=== PATIENT | female | born 1995 | race Caucasian/White ===

== ENCOUNTER 2016-09-06 21:11 | Emergency (ER) | payer BC, OTHER ==
[~2016-09-06] VITALS: Ht 167.6 cm; Wt 70.4 kg
[~2016-09-06 21:11] MED LIST: ACET-1256 PO; BCPILLS PO; LAMO200T38 PO; LXT PO; METF-384 PO; MTR600XX PO; MUSCLE RELAXER PO; NAPR1TAB9 PO
[2016-09-06 21:13] VITALS: Ht 167.6 cm; Wt 70.4 kg
[2016-09-06] MEDS ORDERED: SERT-234 PO (21:54)
[2016-09-06] MEDS ORDERED: LEVO50TA6 PO (21:54)
[2016-09-06] MEDS ORDERED: DOCU-94 PO (21:54)
[2016-09-06] MEDS ORDERED: GABA-112 PO (21:54)
[2016-09-06 22:42] VITALS: BP 115/66; PULSE 101; TEMP 36.7; O2SAT 95
[2016-09-06] MEDS ORDERED: NEOMYCIN/POLYMYX/HYDROCORT OT SUSP 10 ML BTL OT ONE (22:45)
--- NOTE | 2016-09-07 03:36 | EMERGENCY ROOM VISIT NOTE ---
ED Visit Note First contact with patient: 21:16 Chief Complaint: Sore throat and right ear pain. History of Present Illness: Ms. Mcdonnell is a 20-year-old white female who ambulates into the ED accompanied by her mother complaining of throat pain and right ear pain. Patient reports her throat pain started approximately one week ago. Since that time her pain has been constant. She describes her pain as an achy sensation. She rates her discomfort 6/10. The pain is nonradiating. Pain worsens with swallowing. She has not identified any alleviating factors related to the pain. Associated with her pain she reports she has been having fevers, chills and left ear pain. Currently patient describes her left ear pain as a sharp and throbbing sensation. She rates this discomfort 7/10. The pain is nonradiating. The pain worsens with palpation. She has not identified any alleviating factors related to the pain. She has not taken any medications for pain prior to arrival at the hospital. Associated with her pain she reports her hearing is slightly muffled. She did report when her symptoms initially started with her sore throat she was having fevers but has not had any in the last few days. Additionally she denies headache, dizziness, lightheadedness, painful talking, drooling, inability to swallow, neck pain/stiffness, ear drainage, abdominal pain, nausea, vomiting, cough, wheezing, shortness of breath. Review of Systems: As noted above in history of present illness. 8 body systems were reviewed and found to be negative as noted above. Past Medical History: Hypertension, asthma, bronchitis, PCOS, hypothyroidism, hyperinsulinemia. Current Medications: control, Glucophage, Aleve, Colace, Zoloft, Neurontin. Allergies to Medications: Patient denies. Social History: Patient is not employed; she lives by herself and feels safe in her home environment; she admits to tobacco use and denies alcohol use. Physical Examination: Vital Signs: Date Time Temp Pulse Resp B/P Pulse Ox O2 Delivery O2 Flow Rate FiO2 09/06/16 22:42 36.7 101 16 115/66 95 09/06/16 22:40 101 16 115/66 95 Room Air 09/06/16 21:13 36.7 107 16 113/64 95 Room Air GENERAL: -year-old female in mild to moderate distress due to pain, nontoxic- appearing, afebrile and hemodynamically stable. NEUROLOGICAL: Awake, alert and oriented to person, place and time. Answering questions appropriately and following commands. Normal gait. Good hand eye coordination. No focal motor sensory deficits. SKIN: Warm, dry and pink. No soft tissue eruptions or trauma noted. HEENT: Atraumatic and normocephalic. Mild left external ear tenderness over the tragus. Left auditory canal is mildly erythematous and edematous. Tympanic membrane was pearly singh with normal light reflex. PERRLA. Sclera white and conjunctiva pink without drainage. No drainage from naris. Oral cavity moist and pink. Uvula is midline and no abscesses are seen. Posterior pharyngeal area shows mild erythematous. No tonsillar hypertrophy or exudates. No laryngeal tenderness. Speech normal and clear. Mild bilateral anterior cervical chain lymphadenopathy. Trachea midline. No jugular venous distention. BACK: No tenderness over the bony spine. No nuchal rigidity or meningismus. No CVA tenderness. THORAX: Lungs sounds are clear to auscultation and equal bilaterally with symmetrical chest wall. No wheezing, rales or rhonchi. ED Course: Patient is assessed as noted above. Rapid Strep Screen: Negative. Culture pending. 4 drops of Cortisporin otic suspension was placed in the right ear canal. Patient and mother were educated about today's findings and instructed on her treatment plan; she verbalizes understanding and agreement with this plan. Clinical Impression: Acute otitis externa. Acute pharyngitis. Disposition: Patient discharged home in stable condition accompanied by her mother; prior to departure she was reassessed and subjectively reported she was feeling the same. Plan: Patient was encouraged to use 4 drops of Cortisporin otic suspension in the right ear canal 4 times a day for 5-7 days. Patient was encouraged not to put or allow anything in the ear canal until resolution of symptoms/pain. Patient for her throat and ear pain was instructed to use ibuprofen or acetaminophen or alternate every 3 hours. Patient was encouraged to follow-up with family physician for recheck early next week. Patient was encouraged to return to the ED for worsening ear pain, inability to swallow, painful talking, drooling, uncontrolled fevers, ear drainage or any new /concerning symptoms.
== END 2016-09-06 22:43 | disposition home or self-care (01) ==
LOC: C.EDB 21:12 → C.EDD 22:43
DX: H60.503 Unspecified acute noninfective otitis externa, bilateral (principal); J02.9 Acute pharyngitis, unspecified; I10 Essential (primary) hypertension; J45.909 Unspecified asthma, uncomplicated; E28.2 Polycystic ovarian syndrome; E03.9 Hypothyroidism, unspecified; E16.1 Other hypoglycemia; Z79.3 Long term (current) use of hormonal contraceptives; Z79.899 Other long term (current) drug therapy; Z72.0 Tobacco use

== ENCOUNTER 2017-05-07 23:14 | Emergency (ER) | payer BC ==
[~2017-05-07] VITALS: Ht 167.6 cm; Wt 83.0 kg
[~2017-05-07 23:14] MED LIST changes: -ACET-1256 PO; +DOCU-94 PO; +GABA-112 PO; -LAMO200T38 PO; +LEVO50TA6 PO; -LXT PO; -MTR600XX PO; -MUSCLE RELAXER PO; +SERT-234 PO
[2017-05-07 23:21] VITALS: TEMP 36.4; Ht 167.6 cm; Wt 83.0 kg
[2017-05-07] MEDS ORDERED: METF-384 PO (23:40)
[2017-05-07] MEDS ORDERED: LEVO50TA PO (23:40)
[2017-05-07] MEDS ORDERED: SERTRALINE HCL 50 MG TAB PO ONE (23:45)
[2017-05-08 00:01] LABS: BASO % 0.4 %; BASO ABS # 0.03 K/uL (0-0.2); EOS % 2.8 %; EOS ABS # 0.21 K/uL (0-0.5); HEMOGLOBIN 12.4 g/dL (12.0-16.0); IG# 0.02 K/uL (0.00-0.02); LYMPH % 30.5 %; LYMPH ABS # 2.33 K/uL (1.2-3.4); MEAN CORPUSCULAR HEMOGLOBIN 28.8 pg (25-34); MEAN CORPUSCULAR HGB CONC 33.5 g/dl (32-36); MEAN PLATELET VOLUME 10.2 fL (7.4-10.4); MONO % 6.3 %; MONO ABS # 0.48 K/uL (0.11-0.59); NEUT % 59.7 %; NEUT ABS # 4.56 K/uL (1.4-6.5); PLATELET COUNT 255 K/uL (130-400); RED CELL DISTRIBUTION WIDTH CV 14.7 % (11.5-14.5); RED CELL DISTRIBUTION WIDTH SD 46.4 fL (36.4-46.3); WHITE BLOOD COUNT 7.63 K/uL (4.8-10.8)
[2017-05-08 00:23] LABS: ALBUMIN 3.9 gm/dl (3.4-5.0); CALCIUM 8.9 mg/dl (8.5-10.1); CREATININE 0.65 mg/dl (0.60-1.20); POTASSIUM 3.4 mmol/L (3.5-5.1)
[2017-05-08 00:33] LABS: TOTAL PROTEIN 7.7 gm/dl (6.4-8.2)
[2017-05-08] MEDS ORDERED: SERT50TA PO (01:17)
[2017-05-08 01:18] VITALS: BP 100/61; PULSE 66; O2SAT 98
--- NOTE | 2017-05-08 01:19 | EMERGENCY ROOM VISIT NOTE ---
History Report prepared by Gabe: Milo Rodriguez Under the Supervision of: Dr. Kelechi Ramos M.D. First contact with patient: 23:24 Chief Complaint: MENTAL HEALTH EVALUATION Stated Complaint: SELF HARM/ PSYCH History of Present Illness The patient is a 21 year old female who presents to the Emergency Room with complaints of worsening depression beginning this week. She admits to self harming by cutting her left wrist with a razor five days ago. She states that she has felt very stressed recently, and that cutting her wrist helps her with stress relief. The patient states that she stopped taking her Zoloft one week ago. She states that she stopped taking the medication because she ran out of it. She denies drug or alcohol use. The patient denies suicidal or homicidal ideation. She feels that if something emotionally difficult were to happen to her, she may become suicidal. She is unsure if she could be , but states that her LNMP was three days ago. The patient denies leg pain or swelling. She has been admitted to an inpatient psychiatric facility before in the past. Source of History: patient Onset: This week Quality: other (depression) Timing: worsening Note: The patient denies leg pain or swelling. Review of Systems See HPI for pertinent positives & negatives. A total of 10 systems reviewed and were otherwise negative. Past Medical & Surgical Medical Problems: (1) Depression Family History No pertinent family history stated. Social History Smoking Status: Current Every Day Smoker Current/Historical Medications Scheduled Levothyroxine Sodium (Synthroid), 50 MCG PO DAILY Metformin Hcl (Glucophage), 1,000 MG PO BID Sertraline (Zoloft), 2 TAB PO DAILY Allergies Coded Allergies: No Known Allergies (Unverified , 05/07/17) Physical Exam Vital Signs Date Time Temp Pulse Resp B/P (MAP) Pulse Ox O2 Delivery O2 Flow Rate FiO2 05/08/17 01:18 66 16 100/61 98 Room Air 05/07/17 23:21 36.4 108 19 126/82 97 Room Air Physical Exam GENERAL: Patient is depressed appearing and in no acute distress. HEENT: No acute trauma, normocephalic atraumatic, mucous membranes moist, no nasal congestion, no scleral icterus. NECK: No stridor, no adenopathy, no meningismus, trachea is midline. LUNGS: No dyspnea. Clear to auscultation and equal bilaterally. No wheeze, no rhonchi. HEART: Regular rate and rhythm. No murmurs, rubs, gallops appreciated. ABDOMEN: Soft, nontender, bowel sounds positive, no masses appreciated, no peritonitis. BACK: No midline tenderness, no CVA tenderness EXTREMITIES: Normal motion all extremities, no cyanosis, no edema. Healing circumferential abrasions to the left wrist. NEUROLOGIC: Alert and oriented, no acute motor or sensory deficits, no focal weakness, cranial nerves grossly intact. SKIN: No rash, no jaundice, no diaphoresis. PSYCH: Denies suicidal, or homicidal ideation. Denies plan to hurt self. Medical Decision & Procedures Laboratory Results 05/07/17 23:50 Red Blood Count 4.30, Mean Corpuscular Volume 86.0, Mean Corpuscular Hemoglobin 28.8, Mean Corpuscular Hemoglobin Concent 33.5, Mean Platelet Volume 10.2, Neutrophils (%) (Auto) 59.7, Lymphocytes (%) (Auto) 30.5, Monocytes (%) (Auto) 6.3, Eosinophils (%) (Auto) 2.8, Basophils (%) (Auto) 0.4, Neutrophils # (Auto) 4.56, Lymphocytes # (Auto) 2.33, Monocytes # (Auto) 0.48, Eosinophils # (Auto) 0.21, Basophils # (Auto) 0.03 05/07/17 23:50 Test 05/07/17 23:50 05/08/17 00:25 White Blood Count 7.63 K/uL (4.8-10.8) Red Blood Count 4.30 M/uL (4.2-5.4) Hemoglobin 12.4 g/dL (12.0-16.0) Hematocrit 37.0 % (37-47) Mean Corpuscular Volume 86.0 fL (80-100) Mean Corpuscular Hemoglobin 28.8 pg (25-34) Mean Corpuscular Hemoglobin Concent 33.5 g/dl (32-36) Platelet Count 255 K/uL (130-400) Mean Platelet Volume 10.2 fL (7.4-10.4) Neutrophils (%) (Auto) 59.7 % Lymphocytes (%) (Auto) 30.5 % Monocytes (%) (Auto) 6.3 % Eosinophils (%) (Auto) 2.8 % Basophils (%) (Auto) 0.4 % Neutrophils # (Auto) 4.56 K/uL (1.4-6.5) Lymphocytes # (Auto) 2.33 K/uL (1.2-3.4) Monocytes # (Auto) 0.48 K/uL (0.11-0.59) Eosinophils # (Auto) 0.21 K/uL (0-0.5) Basophils # (Auto) 0.03 K/uL (0-0.2) RDW Standard Deviation 46.4 fL (36.4-46.3) RDW Coefficient of Variation 14.7 % (11.5-14.5) Immature Granulocyte % (Auto) 0.3 % Immature Granulocyte # (Auto) 0.02 K/uL (0.00-0.02) Anion Gap 8.0 mmol/L (3-11) Est Creatinine Clear Calc Drug Dose 149.9 ml/min Estimated GFR () 148.1 Estimated GFR (Non- 127.8 BUN/Creatinine Ratio 24.1 (10-20) Calcium Level 8.9 mg/dl (8.5-10.1) Total Bilirubin 0.2 mg/dl (0.2-1) Aspartate Amino Transf (AST/SGOT) 15 U/L (15-37) Alanine Aminotransferase (ALT/SGPT) 25 U/L (12-78) Alkaline Phosphatase 72 U/L (45-117) Total Protein 7.7 gm/dl (6.4-8.2) Albumin 3.9 gm/dl (3.4-5.0) Globulin 3.8 gm/dl (2.5-4.0) Albumin/Globulin Ratio 1.0 (0.9-2) Thyroid Stimulating Hormone (TSH) 0.856 uIu/ml (0.300-4.500) Salicylates Level < 1.7 mg/dl (2.8-20) Acetaminophen Level < 2 ug/ml (10-30) Ethyl Alcohol mg/dL < 3.0 mg/dl (0-3) Urine Color YELLOW Urine Appearance CLEAR (CLEAR) Urine pH 5.5 (4.5-7.5) Urine Specific George 1.022 (1.000-1.030) Urine Protein NEG (NEG) Urine Glucose (UA) NEG (NEG) Urine Ketones NEG (NEG) Urine Occult Blood NEG (NEG) Urine Nitrite NEG (NEG) Urine Bilirubin NEG (NEG) Urine Urobilinogen NEG (NEG) Urine Leukocyte Esterase NEG (NEG) Urine WBC (Auto) 1-5 /hpf (0-5) Urine RBC (Auto) 0-4 /hpf (0-4) Urine Hyaline Casts (Auto) 1-5 /lpf (0-5) Urine Epithelial Cells (Auto) 20-30 /lpf (0-5) Urine Bacteria (Auto) NEG (NEG) Urine Test NEG (NEG) Urine Opiates Screen NEG (NEG) Urine Methadone, Qualitative NEG (NEG) Urine Barbiturates NEG (NEG) Urine Phencyclidine (PCP) Level NEG (NEG) Ur Amphetamine/Methamphetamine NEG (NEG) MDMA (Ecstasy) Screen NEG (NEG) Urine Benzodiazepines Screen NEG (NEG) Urine Cocaine Metabolite NEG (NEG) Urine Marijuana (THC) NEG (NEG) Laboratory results as reviewed by me. Medications Administered Medications (Trade) Dose Ordered Sig/Marcia Route Start Time Stop Time Status Last Admin Dose Admin Sertraline HCl (Zoloft Tab) 100 mg NOW ONCE PO 05/07/17 23:45 05/07/17 23:46 DC 05/07/17 23:45 100 MG ED Course 2327: The patient was evaluated in room A5. A complete history and physical exam was performed. 2345: Ordered Zoloft Tab 100 mg PO. Medical Decision Differential: Mood Disorder, Overdose, Infectious, Electrolyte Abnormality, Cardiac, Hepatic, Endocrine, Toxicologic, Neurologic, amongst other pathologies entertained. 21 yr old female arrives requesting mental health evaluation for depression and increased anxiety 1 week post running out of Zoloft. Other than superficial self abrasions to left wrist that are healing well, no other injuries not attempts at self harm. She denies any thoughts of suicidal/homicidal ideation. Given Zoloft here. Medically clear and evaluated by Psych Liaison. Patient feeling well, continues to deny thoughts of further self harm, suicidal ideation , homicidal ideation. She feel comfortable with discharge. She will be given 2 week supply of her Zoloft which she is to discuss further with her PCP. She is aware she can return at any time for further evaluation. She has made no suicidal ideation, no gesture, no act of furtherance, and is looking to future. Medication Reconcilliation Current Medication List: was personally reviewed by me Blood Pressure Screening Patient's blood pressure: Normal blood pressure Blood pressure disposition: Did not require urgent referral Impression Primary Impression: Depression Additional Impression: Medication refill Scribe Attestation The scribe's documentation has been prepared under my direction and personally reviewed by me in its entirety. I confirm that the note above accurately reflects all work, treatment, procedures, and medical decision making performed by me. Departure Information Dispostion Home / Self-Care Prescriptions Sertraline (Zoloft) 50 Mg Tab 2 TAB PO DAILY, #30 TAB Prov: Kelechi Ramos M.D. 05/08/17 Referrals Karley Gillette PA-C (PCP) Patient Instructions My [facility] Additional Instructions We are always here to help. Return immediately or call 911 if you feel you may harm yourself or others. Follow up with your primary care provider as soon as possible to discuss further medication refills. Problem Qualifiers Primary Impression: Depression
== END 2017-05-08 01:25 | disposition home or self-care (01) ==
LOC: C.EDB 23:21 → MERGE 23:21 → C.EDA 05-08 01:25
DX: F32.9 Major depressive disorder, single episode, unspecified (principal); Z76.0 Encounter for issue of repeat prescription; F17.210 Nicotine dependence, cigarettes, uncomplicated; Z79.899 Other long term (current) drug therapy

== ENCOUNTER 2017-07-24 20:04 | Emergency (ER) | payer BC, OTHER ==
[~2017-07-24] VITALS: Ht 167.6 cm; Wt 81.6 kg
[~2017-07-24 20:04] MED LIST changes: +LEVO50TA PO; +SERT50TA PO
[2017-07-24 20:13] VITALS: BP 105/72; PULSE 97; TEMP 36.7; O2SAT 91; Ht 167.6 cm; Wt 81.6 kg
--- NOTE | 2017-07-24 22:23 | EMERGENCY ROOM VISIT NOTE ---
History First contact with patient: 20:20 Chief Complaint: CONGESTION Stated Complaint: SORE THROAT, SORE EARS, CONGESTION, SWOLLEN LYMPHN Nursing Triage Summary: Notes sore throat, congestion and pain in ears. 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 Patient notes that her menstral period is approx. 1.5-2 weeks late, there is a chance of , would not like test while she's here. History of Present Illness The patient is a 21 year old female who presents to the Emergency Room with several complaints, including sore throat, earaches, right worse than left, sinus congestion and minimal nonproductive cough. The patient has had these symptoms for 2 days. The patient reports that she took Motrin 30 minutes prior to arrival. The patient also reports that her menstruation is approximately 2 weeks late. She reports that there is a possibility of , but would not like to be tested at this time. She rates her overall discomfort a 7 out of 10. Review of Systems 10 system review was performed and was negative except for pertinent positives and negatives as indicated in history of present illness Past Medical/Surgical History Medical Problems: (1) Anxiety (2) ANXIETY STATE NOS (3) Depression (4) Depression (5) DEPRESSIVE DISORDER NEC (6) Diabetes (7) POLYCYSTIC OVARIES (8) Stomach problems Family History Cancer Diabetes mellitus FH: hypertension FH: kidney disease Gallbladder disease Heart disease Social History Smoking Status: Current Every Day Smoker Alcohol Use: occasionally Drug Use: none Marital Status: single Housing Status: lives with family Occupation Status: student Current/Historical Medications Scheduled Control Pills ( Control Pills), 1 TAB PO DAILY Docusate Sodium (Colace), 100 MG PO BID Gabapentin (Neurontin), 100 MG PO TID Levothyroxine Sodium (Levothyroxine Sodium), 50 MCG PO Q2D Levothyroxine Sodium (Synthroid), 50 MCG PO DAILY Metformin Hcl (Glucophage), 1,000 MG PO BID Metformin Hcl (Glucophage), 1,000 MG PO BID Naproxen (Aleve), 220 MG PO DAILY Sertraline (Zoloft), 150 MG PO QAM Sertraline (Zoloft), 2 TAB PO DAILY Physical Exam Vital Signs Date Time Temp Pulse Resp B/P (MAP) Pulse Ox O2 Delivery O2 Flow Rate FiO2 07/24/17 20:17 91 Room Air 07/24/17 20:13 36.7 97 17 105/72 91 Room Air Physical Exam CONSTITUTIONAL: Healthy and well nourished. Alert and oriented X 3 with positive affect. Patient does not appear in any acute distress. HEENT: Normocephalic, atraumatic. Pupils equal, round and reactive. Examination of the ears does not show any erythema, TM bulging or air-fluid levels. Bony landmarks and light reflexes are visible bilaterally. OROPHARYNX: Minimal posterior pharyngeal erythema without tonsillar hypertrophy or exudates. Negative trismus. NECK: Full active range of motion without discomfort. No JVD or carotid bruits. LYMPHATICS: No cervical chain adenopathy. RESPIRATORY: Clear to auscultation bilaterally with no wheezing, crackles, rhonchi or stridor. CARDIOVASCULAR: Regular rate and rhythm with no murmurs, rubs or gallops. INTEGUMENTARY: No rash or other significant dermatologic conditions noted. NEUROLOGIC: No focal neurologic deficits noted. Medical Decision & Procedures Laboratory Results Rapid strep was performed and was negative. Strep cultures are pending. ED Course Patient history and physical exam were performed. Nurse's notes were reviewed. Vital signs were reviewed and were normal. Physical exam is benign. Patient does not appear in any acute distress, nor does she appear acutely ill or toxic. Rapid strep was performed and was negative. The patient was advised that her symptoms are likely secondary to a viral upper respiratory infection. I did offer to perform a urine test in order to broaden the choice of medications that she can take for her symptoms. The patient refused to do so. The patient was therefore encouraged to avoid NSAIDs, Sudafed and other cough medications. She may take Tylenol and Benadryl as needed for symptomatic relief. The patient has also been performing saline nasal rinses. She was encouraged to follow-up with her PCP if symptoms are not improving within the next week. The patient voiced understanding of all discharge instructions, and rated her overall discomfort a 4 out of 10 at the conclusion of my exam. Medical Decision Medication Reconcilliation Current Medication List: was personally reviewed by me Blood Pressure Screening Patient's blood pressure: Normal blood pressure Impression Primary Impression: Upper respiratory infection Departure Information Dispostion Home / Self-Care Forms HOME CARE DOCUMENTATION FORM, IMPORTANT VISIT INFORMATION Patient Instructions My [facility] Additional Instructions We will call you in 48-72 hours with any positive strep cultures. No news means that this is likely a viral infection. Take Tylenol 1000 mg every 6-8 hours as needed for pain. You may also take Benadryl for additional symptomatic relief. Avoid ibuprofen/Motrin/Aleve and Sudafed if there is any chance that you may be . Follow-up with your family doctor as needed if symptoms are not improving within the next 5-7 days. Problem Qualifiers Primary Impression: Upper respiratory infection URI type: unspecified viral URI Qualified Codes: J06.9 - Acute upper respiratory infection, unspecified
--- NOTE | 2017-07-26 12:30 | Pharmacy Progress Note ---
ED Pharmacist Culture FollowUp Date of Service: Jul 26, 2017. Called patient regarding positive strep throat culture. Prescription for amoxicillin 500mg BID X 10 days called to [facility] at the patient's request. Per original provider note, patient stated she may possibly be but refused testing in the ED. Amoxicillin is noted to be category B. Case discussed with Dr. Rogers, who is the prescribing provider.
== END 2017-07-24 22:21 | disposition left against medical advice (07) ==
LOC: C.EDB 20:06 → C.EDD 22:21
DX: J06.9 Acute upper respiratory infection, unspecified (principal); F41.8 Other specified anxiety disorders; E11.9 Type 2 diabetes mellitus without complications; E28.2 Polycystic ovarian syndrome; F17.200 Nicotine dependence, unspecified, uncomplicated; Z79.899 Other long term (current) drug therapy; Z79.84 Long term (current) use of oral hypoglycemic drugs; Z79.3 Long term (current) use of hormonal contraceptives

== ENCOUNTER 2017-08-05 19:54 | Emergency (ER) | payer BC, OTHER ==
[~2017-08-05] VITALS: Ht 167.6 cm; Wt 81.2 kg
[2017-08-05 20:00] VITALS: TEMP 36.7; Ht 167.6 cm; Wt 81.2 kg
[2017-08-05] MEDS ORDERED: FLUCONAZOLE 50 MG TAB PO ONE (21:00)
--- NOTE | 2017-08-05 21:09 | EMERGENCY ROOM VISIT NOTE ---
History Report prepared by Gabe: Candice Karimi Under the Supervision of: Kobe FrederickO. First contact with patient: 20:21 Chief Complaint: OTHER COMPLAINT Stated Complaint: ITCHY SORE VAGINA History of Present Illness The patient is a 21 year old female who presents to the Emergency Room with complaints of persistent vaginal discomfort that began 2 days ago. She reports that she has noticed an abnormal odor coming from her vagina, followed by some itching, thick white discharge, and some redness. The patient denies any sores or other abnormal findings. She states that the topical cream that she applied to her genitals did not relieve her symptoms. The patient notes that her symptoms feel like a past yeast infection, stating that she is not concerned for any STD's. She reports that she is currently taking Amoxicillin, noting that she was diagnosed with strep throat about one week ago. The patient states that her last normal menstrual period was 2 weeks ago. She notes a history of PCOS, thyroid problems, and states that she is a pre diabetic. Source of History: patient Onset: 2 days ago Position: other (genitals) Quality: other (vaginal discomfort) Timing: other (persistent) Note: Associated symptoms: abnormal odor coming from her vagina, followed by some itching, thick white discharge, and some redness. Patient denies: sores. Review of Systems See HPI for pertinent positives & negatives. A total of 10 systems reviewed and were otherwise negative. Past Medical & Surgical Medical Problems: (1) Anxiety (2) ANXIETY STATE NOS (3) Depression (4) Depression (5) DEPRESSIVE DISORDER NEC (6) Diabetes (7) POLYCYSTIC OVARIES (8) Stomach problems Family History Cancer Diabetes mellitus FH: hypertension FH: kidney disease Gallbladder disease Heart disease Social History Smoking Status: Current Every Day Smoker Alcohol Use: occasionally Drug Use: none Marital Status: single Housing Status: lives with family Occupation Status: student Current/Historical Medications Scheduled Control Pills ( Control Pills), 1 TAB PO DAILY Clotrimazole (Topical) (Lotrimin Af), 1 APPLN TOP BID Docusate Sodium (Colace), 100 MG PO BID Gabapentin (Neurontin), 100 MG PO TID Levothyroxine Sodium (Levothyroxine Sodium), 50 MCG PO Q2D Levothyroxine Sodium (Synthroid), 50 MCG PO DAILY Metformin Hcl (Glucophage), 1,000 MG PO BID Metformin Hcl (Glucophage), 1,000 MG PO BID Naproxen (Aleve), 220 MG PO DAILY Sertraline (Zoloft), 150 MG PO QAM Sertraline (Zoloft), 2 TAB PO DAILY Allergies Coded Allergies: No Known Allergies (Unverified , 09/06/16) Physical Exam Vital Signs Date Time Temp Pulse Resp B/P (MAP) Pulse Ox O2 Delivery O2 Flow Rate FiO2 08/05/17 22:00 70 18 125/75 98 08/05/17 20:00 36.7 99 16 113/71 99 Room Air Physical Exam GENERAL: Patient is awake, alert, and in no acute distress. Patient is resting comfortably and showing no signs of anxiety EYES: The conjunctivae are clear. The pupils are round and reactive. EARS, NOSE, MOUTH AND THROAT: The nose is without any evidence of any deformity. Mucous membranes are moist tongue is midline NECK: The neck is nontender and supple. RESPIRATORY: Normal respiratory effort is noted there is no evidence of wheezing rhonchi or rales CARDIOVASCULAR: Regular rate and rhythm noted there no murmurs rubs or gallops normal S1 normal S2 GASTROINTESTINAL: The abdomen is soft. Bowel sounds are present in all quadrants. Abdomen is nontender PELVIS: The Pelvis is stable. No tenderness to palpation is noted. Vaginal: External genitalia was erythematous with thick white discharge noticed. Speculum exam revealed thick adherent white discharge but no erythema of cervix and no cervical tenderness noted. MUSCULOSKELETAL/EXTREMITIES: There is no evidence of gross deformity full range of motion is noted in the hips and shoulders SKIN: There is no obvious evidence of any rash. There are no petechiae, pallor or cyanosis noted. NEUROLOGIC: Patient is awake alert and oriented x3 Medical Decision & Procedures Laboratory Results Test 08/05/17 20:55 Urine Color DK YELLOW Urine Appearance CLEAR (CLEAR) Urine pH 5.0 (4.5-7.5) Urine Specific [place] 1.033 (1.000-1.030) Urine Protein NEG (NEG) Urine Glucose (UA) NEG (NEG) Urine Ketones NEG (NEG) Urine Occult Blood NEG (NEG) Urine Nitrite NEG (NEG) Urine Bilirubin NEG (NEG) Urine Urobilinogen NEG (NEG) Urine Leukocyte Esterase TRACE (NEG) Urine WBC (Auto) 1-5 /hpf (0-5) Urine RBC (Auto) 0-4 /hpf (0-4) Urine Hyaline Casts (Auto) 5-10 /lpf (0-5) Urine Epithelial Cells (Auto) >30 /lpf (0-5) Urine Bacteria (Auto) NEG (NEG) Urine Test NEG (NEG) Laboratory results per my review. Medications Administered Medications (Trade) Dose Ordered Sig/Marcia Route Start Time Stop Time Status Last Admin Dose Admin Fluconazole (Diflucan Tab) 150 mg NOW ONCE PO 08/05/17 21:00 08/05/17 21:01 DC 08/05/17 21:02 150 MG ED Course 2042: The patient was evaluated in room C5. A complete history and physical examination were performed. 2099: Ordered Diflucan Tab 150mg PO. 2134: Upon reevaluation, the patient is resting comfortably. I discussed the results and treatment plan with her. She verbalized agreement of the treatment plan. The patient was discharged home. Medical Decision Nursing notes reviewed. Patient's previous electronic medical records reviewed. The patient is a 21-year-old female who presented to the emergency department for an evaluation of pelvic pain. The patient's physical exam is consistent with vulvovaginitis. She did not appear to have signs of cervicitis. The patient was recently placed on antibiotic for an infection. I do feel her overall condition is consistent with vulvovaginitis from candidiasis. The patient was started on Diflucan in the emergency department. Cultures were obtained. The patient was encouraged to avoid any sexual activity until her laboratory studies returned and she was asymptomatic. Otherwise she was encouraged to follow-up with her primary care physician this week for reevaluation. Medication Reconcilliation Current Medication List: was personally reviewed by me Blood Pressure Screening Patient's blood pressure: Normal blood pressure Blood pressure disposition: Did not require urgent referral Impression Primary Impression: Vaginitis and vulvovaginitis Additional Impression: Candidiasis Scribe Attestation The scribe's documentation has been prepared under my direction and personally reviewed by me in its entirety. I confirm that the note above accurately reflects all work, treatment, procedures, and medical decision making performed by me. Departure Information Dispostion Home / Self-Care Prescriptions Clotrimazole (Topical) (LOTRIMIN AF) 1 % Cre 1 APPLN TOP BID for 7 Days, #24 GM 1 Refill Prov: Remberto Lind, DO 08/05/17 Referrals No Doctor, Assigned (PCP) Forms HOME CARE DOCUMENTATION FORM, IMPORTANT VISIT INFORMATION, WORK / SCHOOL INSTRUCTIONS Patient Instructions [facility] Additional Instructions Continue all medications as prescribed. Follow-up with your primary care physician this week for reevaluation. Problem Qualifiers
[2017-08-05] MEDS ORDERED: CLOT-51 TOP (21:48)
[2017-08-05 22:00] VITALS: BP 125/75; PULSE 70; O2SAT 98
== END 2017-08-05 22:00 | disposition home or self-care (01) ==
LOC: C.EDB 19:56 → C.EDC 22:00
DX: N76.0 Acute vaginitis (principal); B37.3 Candidiasis of vulva and vagina; E28.2 Polycystic ovarian syndrome; E11.9 Type 2 diabetes mellitus without complications; F32.9 Major depressive disorder, single episode, unspecified; F17.200 Nicotine dependence, unspecified, uncomplicated; Z83.3 Family history of diabetes mellitus; Z82.49 Family history of ischemic heart disease and other diseases of the circulatory system; Z79.84 Long term (current) use of oral hypoglycemic drugs; Z79.899 Other long term (current) drug therapy

== ENCOUNTER 2017-11-11 19:13 | Emergency (ER) | payer BC, OTHER ==
[~2017-11-11] VITALS: Ht 167.6 cm; Wt 78.6 kg
[~2017-11-11 19:13] MED LIST changes: +CLOT-51 TOP
[2017-11-11 19:16] VITALS: TEMP 36.9; Ht 167.6 cm; Wt 78.6 kg
--- NOTE | 2017-11-11 19:21 | EMERGENCY ROOM VISIT NOTE ---
ED Visit Note First contact with patient: 19:21 CHIEF COMPLAINT: Positive test at home, wants confirmation HISTORY OF PRESENT ILLNESS: This 22-year-old female patient presents to the emergency department by private vehicle requesting a blood test to confirm . She states that she has been having some symptoms of urinary frequency, feeling more tired than usual, and noticed that her period was about a week late, she states she took 2 urine home tests at home and they were positive. She states she is on medicine for depression and she wanted to make sure she was because she wanted to know if she should stop these medicines. She denies any abdominal pain, back pain, vaginal bleeding or discharge, nausea or vomiting, dizziness, syncope, or unusual rash. She denies any dysuria or hematuria. REVIEW OF SYSTEMS: A review of systems was performed with positives and pertinent negatives listed in the history of present illness. All other systems were reviewed and are negative. ALLERGIES: No known allergies. MEDICATIONS: Reviewed in chart, see below. PMH: Reviewed in chart, see problem list below. SOCIAL HISTORY: Lives at home. She is a current everyday smoker. PHYSICAL EXAM: VITALS: Vitals are noted on the nurse's note and reviewed by myself. Vital signs stable. GENERAL: Pleasant and cooperative, in no acute distress, well-hydrated, well- developed well-nourished. LUNGS: Clear to auscultation bilaterally, no wheezes, rhonchi, rales, or stridor. Equal expansion bilaterally. HEART: Regular rate and rhythm with no murmurs, rubs, or gallops. Normal peripheral perfusion with 2+ pulses in all 4 extremities. No edema. ABDOMEN: Soft, nontender, nondistended. No rebound tenderness or guarding. Normal bowel sounds in all 4 quadrants. SKIN: Lester, warm, dry. No rash or other abnormalities noted. NEURO: Alert and oriented 4, with normal affect. Normal speech, normal gait observed. EMERGENCY DEPARTMENT COURSE: I examined the patient. UA was performed to rule out UTI, this is negative. Beta hCG quant is elevated confirming positive , estimating around 2-3 weeks gestation based on the level. Patient's medications were reviewed, she is not on any high risk teratogenic medications currently. She was provided with contact information for OB, and encouraged to call tomorrow to speak with the nurse regarding her medications and to set up care. She was counseled regarding smoking cessation. She was also given return precautions should her symptoms worsen, she verbalized understanding. Patient was discharged home in stable condition and ambulatory. Problem List Medical Problems: (1) Anxiety Status: Chronic (2) ANXIETY STATE NOS Status: Resolved (3) Depression Status: Chronic (4) Depression Status: Chronic (5) DEPRESSIVE DISORDER NEC Status: Resolved (6) Diabetes Status: Chronic (7) POLYCYSTIC OVARIES Status: Resolved (8) Stomach problems Status: Chronic Current/Historical Medications Scheduled Lamotrigine (Lamictal), 25 MG PO BID Levothyroxine Sodium (Levothyroxine Sodium), 50 MCG PO DAILY Metformin Hcl (Glucophage), 1,000 MG PO QAM Metformin Hcl (Glucophage), 500 MG PO QPM Multiple Vitamins W/ Minerals (Alive Once Daily Womens U), 1 TAB PO DAILY Sertraline Hcl (Zoloft), 150 MG PO DAILY Scheduled PRN Lorazepam (Ativan), 0.5 MG PO TID PRN for Anxiety Allergies Coded Allergies: No Known Allergies (Unverified , 09/06/16) Vital Signs Date Time Temp Pulse Resp B/P (MAP) Pulse Ox O2 Delivery O2 Flow Rate FiO2 11/11/17 21:24 83 16 128/81 96 11/11/17 19:16 36.9 99 18 114/82 98 Room Air Laboratory Results Test 11/11/17 19:35 Urine Color YELLOW Urine Appearance CLEAR (CLEAR) Urine pH 5.0 (4.5-7.5) Urine Specific [place] 1.028 (1.000-1.030) Urine Protein NEG (NEG) Urine Glucose (UA) NEG (NEG) Urine Ketones NEG (NEG) Urine Occult Blood NEG (NEG) Urine Nitrite NEG (NEG) Urine Bilirubin NEG (NEG) Urine Urobilinogen NEG (NEG) Urine Leukocyte Esterase NEG (NEG) Human Chorionic Gonadotropin, Quant 139 mIU/mL Departure Information Impression Primary Impression: confirmed by positive blood test Dispostion Home / Self-Care Condition GOOD Referrals Karley Gillette PA-C (PCP) Patient Instructions ED Preg Established Normal Sxs, ED Care, [facility] Additional Instructions You have been evaluated in the emergency department today to have a test done. Your test on the blood is POSITIVE. This blood test is called a beta hCG quantitative test, and the level today was 139, which indicates that you are between 2 and 3 weeks along. Start taking a daily vitamin as soon as possible. If you have pain or headaches, you may take Tylenol as needed. Do not take NSAIDs like ibuprofen or naproxen, as these are not safe in . You have been provided with the contact information for the [facility] clinic. Please call tomorrow to speak with the nurse regarding her questions about medications and to set up an appointment for your initial care. Please return to the emergency department for any symptoms of abdominal pain, vaginal bleeding, severe dizziness or passing out, or any other concerns.
[2017-11-11] MEDS ORDERED: SERT100T PO (20:09)
[2017-11-11] MEDS ORDERED: MULT-1044 PO (20:09)
[2017-11-11] MEDS ORDERED: LAMO25TA PO (20:09)
[2017-11-11] MEDS ORDERED: LEVO50TA6 PO (20:09)
[2017-11-11] MEDS ORDERED: LORA-741 PO (20:09)
[2017-11-11] MEDS ORDERED: METF-384 PO ×2 (20:10)
[2017-11-11 21:24] VITALS: BP 128/81; PULSE 83; O2SAT 96
== END 2017-11-11 21:25 | disposition home or self-care (01) ==
LOC: C.EDB 19:14 → C.EDD 21:25
DX: Z32.01 Encounter for pregnancy test, result positive (principal); F32.9 Major depressive disorder, single episode, unspecified; F17.210 Nicotine dependence, cigarettes, uncomplicated; F41.9 Anxiety disorder, unspecified; E11.9 Type 2 diabetes mellitus without complications; Z79.899 Other long term (current) drug therapy; Z79.84 Long term (current) use of oral hypoglycemic drugs

== ENCOUNTER 2018-07-17 05:20 | Inpatient (IN) ==
[2018-07-17] MEDS ORDERED: OXYTOCIN 30 UNITS/500 ML BAG IV PRN (07:48)
[2018-07-17] MEDS ORDERED: LACTATED RINGER'S 1,000 ML IV PRN ×2 (07:48→16:55)
--- NOTE | 2018-07-17 07:54 | Obstetrical Progress Note ---
Date of Service July 17, 2018 Subjective Admit Note 22 F P0010 at 40 weeks with onset of labor this morning. Cervix 4/80/- 1/vertex/anterior/soft. FHT Cat 1. GBS is negative. EFW 7.5 lbs. Contractions are 5 minutes apart and since walking are getting stronger. She will be admitted and anticipate normal delivery. Physical Exam Vital Signs (Past 24 Hours): Last Vital Signs Temp 37.0 C 07/17/18 07:22 Pulse 92 H 07/17/18 07:22 Resp 18 07/17/18 07:22 BP 103/55 L 07/17/18 07:22
[2018-07-17 08:13] LABS: Hematocrit (blood only) 30.9 % (37-47); Hemoglobin 10.2 g/dL (12.0-16.0); Mean Corpuscular Volume 85.4 fL (80-100); Mean Platelet Volume 10.4 fL (7.4-10.4); Platelet Count 180 K/uL (130-400); RDW Coefficient of Variation 13.6 % (11.5-14.5); RDW Standard Deviation 42.1 fL (36.4-46.3); Red Blood Count 3.62 M/uL (4.2-5.4); White Blood Count 10.03 K/uL (4.8-10.8)
[2018-07-17] MEDS: LEVOTHYROXINE SODIUM 50 MCG TABLET PO SCH ×2 (08:52→15:13)
[2018-07-17] MEDS: SERTRALINE HCL 100 MG TABLET PO SCH (08:52)
[2018-07-17] MEDS ORDERED: BUPIVACAINE 0.25% 30 ML VIAL ONE ×3 (11:48→22:10)
[2018-07-17] MEDS ORDERED: fentaNYL citrate 100 MCG/2 ML VIAL ONE ×2 (11:49→16:30)
[2018-07-17] MEDS ORDERED: ePHEDrine sulfate 50 MG/ML AMP ONE ×2 (11:49→16:30)
[2018-07-17] MEDS ORDERED: fentaNYL 2MCG/ML ROPIV 1.25MG/ML 100 ML BAG EPI ONE ×2 (11:50→16:30)
[2018-07-17] MEDS: LACTATED RINGER'S 1,000 ML IV SCH ×2 (14:52→17:29)
[2018-07-17] MEDS ORDERED: NALOXONE HCL 0.4 MG/1 ML VIAL/CARP IV PRN (16:55)
[2018-07-17] MEDS ORDERED: fentaNYL 2MCG/ML ROPIV 1.25MG/ML 100 ML BAG EPI PRN (16:55)
[2018-07-17] MEDS ORDERED: ePHEDrine sulfate 50 MG/ML AMP IV PRN (16:55)
[2018-07-17] MEDS ORDERED: ONDANSETRON INJ 2 MG/ML 2 ML VIAL IV PRN (16:55)
[2018-07-17] MEDS ORDERED: NALOXONE HCL 1 MG in SODIUM CHLORIDE 0.9% 1000ML 1,000 ML IV PRN (16:55)
[2018-07-17] MEDS ORDERED: DiphenhydrAMINE HCL 50 MG/ML VIAL IV PRN (16:55)
[2018-07-17] MEDS ORDERED: NALBUPHINE HCL INJ 10 MG/ML AMP IV PRN (16:55)
--- NOTE | 2018-07-17 16:58 | Anesthesiology Consultation ---
Date of Service July 17, 2018 Assessment & Plan (1) Encounter for pre-operative examination: Chart Review Chart Review: Patient NOT seen in Pre Admission Testing and Acceptable Risk for Labor Epidural Consults Requested none History Height/Weight Height: 5 ft 6 in Weight: 84.368 kg Allergies Allergy/AdvReac Type Severity Reaction Status Date / Time No Known Allergies Allergy Verified 07/17/18 06:06 Medications Home Medications Medication Instructions Recorded Confirmed Last Taken PNV,calcium [id number] acid 1 tab PO QAM 12/29/17 04/26/18 04/26/18 [PrePlus] levothyroxine 50 mcg PO QAM 12/29/17 07/17/18 07/16/18 07:00 sertraline [Zoloft] 200 mg PO QAM 12/29/17 07/17/18 07/16/18 07:00 vit no.[id number] 800 mcg PO DAILY 07/17/18 07/17/18 07/16/18 05:00 [ Vitamin] Active Medications Generic Name Dose Route Start Last Admin Trade Name Freq PRN Reason Stop Dose Admin Lactated Ringer's 1,000 mls @ 999 mls/hr 07/17/18 07:48 07/17/18 14:52 Lr IV 08/16/18 07:47 Infused .Q1H1M PRN Infusion (Pre-Anesthesia) Lactated Ringer's 1,000 mls @ 125 mls/hr 07/17/18 08:00 07/17/18 16:34 Lr IV 07/19/18 07:59 999 mls/hr .Q8H MISTY Infusion Levothyroxine Sodium 50 mcg 07/17/18 09:00 07/17/18 15:13 Synthroid PO 08/16/18 08:59 Not Given DAILYBB MISTY Sertraline HCl 200 mg 07/17/18 09:00 07/17/18 08:52 Zoloft PO 08/16/18 08:59 200 mg QAM MISTY Administration Past Medical History Medical History Diabetes (Chronic) Stomach problems (Chronic) Anxiety (Acute) Depression (Chronic) Diarrhea (Acute) Suicidal ideation (Resolved) Vaginal yeast infection (Acute) Vomiting (Acute) Vomiting and diarrhea (Acute) PCOS (polycystic ovarian syndrome) UTI (urinary tract infection) (Inactive) Past Family History Family History Other No significant family history Past Anesthesia History No Hx of Anesthesia Complications and No Family Hx of Anesthesia Complications History of PONV No Motion Sickness Screening History of Motion Sickness: No Social History Smoking Status: Current every day smoker tobacco type: cigarettes Smoking cigarettes per day: 4 Do You Dip or Chew Tobacco: No Hx Alcohol Use: No Hx Substance Use: No substance use type: does not use Exercise / Class Metabolic Activity III < 4 Walking/Shop/Light housework Physical Exam Vital Signs Last Vital Signs Temp 37.0 C 07/17/18 16:45 Pulse 89 07/17/18 16:54 Resp 20 07/17/18 16:30 BP 130/83 07/17/18 16:40 Pulse Ox 97 07/17/18 16:54 Testing Laboratory Results 07/17/18 08:05
--- NOTE | 2018-07-17 19:59 | Obstetrical Progress Note ---
Date of Service July 17, 2018 Physical Exam Vital Signs (Past 24 Hours): Last Vital Signs Temp 37.0 C 07/17/18 19:01 Pulse 82 07/17/18 19:54 Resp 16 07/17/18 19:01 BP 103/58 L 07/17/18 19:53 Pulse Ox 98 07/17/18 19:54 Genitourinary: Manual OB Exam: + cervical dilation 6 cm and 7 cm, + cervical effacement 100%, + station and + amniotic fluid clear OB Exam Monitor Tracing: + external uterine monitor used, + category I and + normal FHT variability AROM clear fluid
[2018-07-18] MEDS: LACTATED RINGER'S 1,000 ML IV SCH (00:55)
[2018-07-18] MEDS ORDERED: BISACODYL 10 MG SUPP PR PRN (02:30)
[2018-07-18] MEDS ORDERED: SUPERCREAM 0.870% 15 GM JAR EXT PRN (02:30)
[2018-07-18] MEDS ORDERED: ACETAMINOPHEN 325 MG TAB PO PRN (02:30)
[2018-07-18] MEDS ORDERED: DIPHTHERIA/TETANUS/PERTUSSIS 0.5 ML SYR/VIAL IM ONE (02:30)
[2018-07-18] MEDS ORDERED: OXYTOCIN 30 UNITS/500 ML BAG IV PRN (02:30)
[2018-07-18] MEDS ORDERED: BENZOCAINE 20% AER SPR 82.5 GM CAN EXT PRN (02:30)
[2018-07-18] MEDS ORDERED: HYDROCORTISONE ACETATE 25 MG SUPP PR PRN (02:30)
--- NOTE | 2018-07-18 02:36 | Procedure Note ---
Vaginal Delivery Summary Date of Service July 18, 2018 Delivery note live female AMY over intact perineum with Apgars 8/8 weight pending. Delayed cord clamping followed by cord blood blood and spontaneous delivery of intact placenta. EBL 250 ml. Final sponge and instrument count are correct. Mom and baby stable.
[2018-07-18] MEDS: LEVOTHYROXINE SODIUM 50 MCG TABLET PO SCH (06:11)
[2018-07-18] MEDS ORDERED: LEVOTHYROXINE SODIUM 50 MCG TABLET PO SCH (06:30)
[2018-07-18] MEDS: PRENATAL VITAMIN 1 TAB PO SCH (08:10)
[2018-07-18] MEDS: SERTRALINE HCL 100 MG TABLET PO SCH (08:10)
[2018-07-18] MEDS: DOCUSATE SODIUM 100 MG CAP PO SCH ×2 (08:10→20:48)
[2018-07-18] MEDS: IBUPROFEN 600 MG TAB PO PRN ×2 (08:13→23:59)
--- NOTE | 2018-07-18 08:41 | Anesthesia Procedure Note ---
Date of Service July 18, 2018 Anesthesia Post Epidural Note Vital Signs Vital Signs: Temp Pulse Resp BP Pulse Ox 36.7 C 83 18 102/53 L 97 07/18/18 06:00 07/18/18 06:00 07/18/18 06:00 07/18/18 06:00 07/18/18 02:34 Pain Intensity Bilateral Perineal: Pain Intensity: 1 Notes Mental Status: alert / awake / arousable Patient Amnestic to Procedure: No Nausea / Vomiting: adequately controlled Pain: adequately controlled Airway Patency, RR, SpO2: stable & adequate BP & HR: stable & adequate Hydration State: stable & adequate Anesthetic Complications: no major complications apparent Epidural: Removed without complications and With tip intact Notes: Pt doing well without complaints. VSS. Epidural site looks clean and dry without signs of edema or erythema.
[2018-07-18] MEDS ORDERED: SERTRALINE HCL 100 MG TABLET PO SCH (09:00)
[2018-07-18] MEDS ORDERED: PRENATAL VITAMIN 1 TAB PO SCH (09:00)
[2018-07-19] MEDS: LEVOTHYROXINE SODIUM 50 MCG TABLET PO SCH (07:14)
[2018-07-19 07:22] LABS: Hematocrit (blood only) 27.1 % (37-47); Hemoglobin 8.8 g/dL (12.0-16.0); Mean Corpuscular Hgb Conc 32.5 g/dL (32-36); Mean Corpuscular Volume 85.5 fL (80-100); Mean Platelet Volume 10.4 fL (7.4-10.4); Platelet Count 139 K/uL (130-400); RDW Coefficient of Variation 13.8 % (11.5-14.5); RDW Standard Deviation 42.8 fL (36.4-46.3); Red Blood Count 3.17 M/uL (4.2-5.4); White Blood Count 8.35 K/uL (4.8-10.8)
[2018-07-19] MEDS: IBUPROFEN 600 MG TAB PO PRN (08:15)
[2018-07-19] MEDS: DOCUSATE SODIUM 100 MG CAP PO SCH ×2 (08:16→20:40)
[2018-07-19] MEDS: PRENATAL VITAMIN 1 TAB PO SCH (08:16)
[2018-07-19] MEDS: SERTRALINE HCL 100 MG TABLET PO SCH (08:16)
--- NOTE | 2018-07-19 10:08 | Obstetrical Progress Note ---
Date of Service July 19, 2018 Subjective Patient is seen and examined. She feels well, no complaints. Ambulating without dizziness Voiding without difficulty Tolerating regular diet with out N&V Bleeding is minimal No fever/ chills/ CP/ SOB/ N&V/ Leg pain Breast feeding without problems Vital Signs Temp Pulse Resp BP 07/19/18 00:00 36.6 C 85 18 130/73 07/18/18 20:30 36.6 C 83 20 119/73 07/18/18 16:25 36.5 C 85 20 134/81 07/18/18 11:55 36.7 C 83 20 115/68 07/19/18 Range/Units 06:42 WBC 8.35 (4.8-10.8) K/uL RBC 3.17 L (4.2-5.4) M/uL Hgb 8.8 L (12.0-16.0) g/dL Hct 27.1 L (37-47) % MCV 85.5 (80-100) fL MCH 27.8 (25-34) pg MCHC 32.5 (32-36) g/dL RDW Std Deviation 42.8 (36.4-46.3) fL RDW Coeff of Shad 13.8 (11.5-14.5) % Plt Count 139 (130-400) K/uL MPV 10.4 (7.4-10.4) fL PE: General: Alert, orientedx3, NAD Abd: soft, NT, fundus firm, below Umbilicus Perineum intact, Lochia rubra minimal Ext; NT, no edema AP: 22 yo s/p , ppd# 1 VSS Afebrile doing well Continue routine care All questions were answered D/C home tomorrow Physical Exam Vital Signs (Past 24 Hours): Last Vital Signs Temp 36.6 C 07/19/18 00:00 Pulse 85 07/19/18 00:00 Resp 18 07/19/18 00:00 BP 130/73 07/19/18 00:00 Pulse Ox 97 07/18/18 02:34
[2018-07-19] MEDS: FERROUS SULFATE 325 MG TAB PO SCH (18:21)
[2018-07-19] MEDS ORDERED: BISACODYL 5 MG TABEC PO SCH (20:00)
[2018-07-20] MEDS: LEVOTHYROXINE SODIUM 50 MCG TABLET PO SCH (06:00)
[2018-07-20] MEDS: DOCUSATE SODIUM 100 MG CAP PO SCH (08:18)
[2018-07-20] MEDS: FERROUS SULFATE 325 MG TAB PO SCH (08:18)
[2018-07-20] MEDS: SERTRALINE HCL 100 MG TABLET PO SCH (08:18)
[2018-07-20] MEDS: PRENATAL VITAMIN 1 TAB PO SCH (08:18)
--- NOTE | 2018-07-20 10:44 | Obstetrical Progress Note ---
Date of Service July 20, 2018 Subjective Patient is seen and examined. She feels well, no complaints. Likes to be discharged. Ambulating without dizziness Voiding without difficulty Tolerating regular diet with out N&V Bleeding is minimal No fever/ chills/ CP/ SOB/ N&V/ Leg pain Breast feeding without problems Vital Signs Temp Pulse Resp BP Pulse Ox 07/20/18 07:41 36.6 C 76 18 114/71 07/19/18 23:05 36.6 C 80 18 115/68 07/19/18 20:00 36.8 C 73 18 106/60 07/19/18 16:30 36.6 C 77 18 117/75 98 07/20/18 Range/Units 06:16 Hgb 9.0 L (12.0-16.0) g/dL Hct 28.0 L (37-47) % PE: General: Alert, orientedx3, NAD Abd: soft, NT, fundus firm, below Umbilicus Perineum intact, Lochia rubra minimal Ext; NT, no edema AP: 22 yo s/p , ppd# 2 VSS Afebrile doing well Continue routine care All questions were answered D/C home , f/u in office Physical Exam Vital Signs (Past 24 Hours): Last Vital Signs Temp 36.6 C 07/20/18 07:41 Pulse 76 07/20/18 07:41 Resp 18 07/20/18 07:41 BP 114/71 07/20/18 07:41 Pulse Ox 98 07/19/18 16:30
== END 2018-07-20 13:20 | disposition home health service (06) | DRG 807 ==
LOC: OPB 05:20 → 4S1 05:39 → 4S2 07-18 06:00

== ENCOUNTER 2018-10-01 20:57 | Inpatient (IN) ==
[2018-10-01] MEDS ORDERED: SODIUM CHLORIDE 0.9% 1000ML 1,000 ML IV SCH (22:00)
[2018-10-01 22:03] LABS: Basophils # (auto) 0.01 K/uL (0-0.2); Basophils % (auto) 0.1 %; Eosinophils % (auto) 5.4 %; Hematocrit (blood only) 33.9 % (37-47); Hemoglobin 11.1 g/dL (12.0-16.0); Immature Granulocytes # (auto) 0.01 K/uL (0.00-0.02); Immature Granulocytes % (auto) 0.1 %; Lymphocytes % (auto) 19.1 %; Mean Corpuscular Hgb Conc 32.7 g/dL (32-36); Mean Corpuscular Volume 80.9 fL (80-100); Mean Platelet Volume 10.9 fL (7.4-10.4); Monocytes # (auto) 0.42 K/uL (0.11-0.59); Monocytes % (auto) 5.7 %; Neutrophils % (auto) 69.6 %; Platelet Count 209 K/uL (130-400); RDW Coefficient of Variation 16.1 % (11.5-14.5); RDW Standard Deviation 47.5 fL (36.4-46.3); Red Blood Count 4.19 M/uL (4.2-5.4); White Blood Count 7.34 K/uL (4.8-10.8)
[2018-10-01 22:11] LABS: Albumin Level 3.9 gm/dl (3.4-5.0); Calcium 9.6 mg/dl (8.5-10.1); Creatinine Clr Calc Pharmacy 136.9 ml/min; Est GFR (African American) 144.6; Est GFR (Non-African American) 124.8; Potassium 3.7 mmol/L (3.5-5.1)
[2018-10-01 22:19] LABS: Pregnancy Test, Serum Negative (Negative)
[2018-10-01 22:21] LABS: Bilirubin,Total 0.2 mg/dl (0.2-1); Globulin 3.8 gm/dl (2.5-4.0); Total Protein 7.7 gm/dl (6.4-8.2)
[2018-10-01 22:22] LABS: Acetaminophen < 2 ug/ml (10-30)
[2018-10-01 22:23] LABS: Salicylate < 1.7 mg/dl (2.8-20)
--- NOTE | 2018-10-02 01:11 | Emergency Department Note ---
Entered by Blayne Vela acting as a scribe for Wai Simons MD History of Present Illness General Chief complaint: Overdose (Intentional) Stated complaint: TOOK PILLS Time Seen by Provider: 10/01/18 21:16 Source: patient, RN notes reviewed and friends History of Present Illness Provider complaint: Overdose Onset (ago): hour(s) (Just prior to arrival) Location: head Radiation: non-radiation Pain Consistency: + other (Episodic) Quality: + other (Intentional ) Relieved By: + none Exacerbated By: + none Associated symptoms: + other (Positive thoughts of self harm); no cough and no fever/chills The patient is a 23 year old female who presents to the Emergency Room after overdosing on Ativan just prior to arrival. Per the nursing staff, the patient took a half bottle of her 0.5mg Ativan prescription. The patient states she was not trying to kill herself, but she was trying to hurt herself. She also mentioned that when she was younger she had tried to hurt herself and was a dmitted for inpatient treatment. The patient is also currently on Zoloft, Levothyroxine, and Abilify, but states she did not take any of these other medications. The patient was brought to the ED by her friend who noticed she was acting weird over texts so she went to check on her. Per the friend, the patient has been more depressed as of late due to life stressors. The patient recently had a child 4 months ago and is fighting for custody. She also has been having abdominal pain due to an infection she received from an antibiotic she was recently on. Home Medications Home Medications Medication Instructions Recorded Confirmed Type levothyroxine 50 mcg PO QAM 12/29/17 10/01/18 History sertraline [Zoloft] 200 mg PO QAM 12/29/17 10/01/18 History ondansetron 4 mg PO Q6H PRN #10 tab 09/05/18 10/01/18 Rx aripiprazole 5 mg PO HS 10/01/18 10/01/18 History Allergies Allergy/AdvReac Type Severity Reaction Status Date / Time No Known Allergies Allergy Verified 09/05/18 20:03 Past Med/Surg History Medical History Hypothyroid Tobacco abuse Diabetes (Chronic) Stomach problems (Chronic) Anxiety (Acute) Depression (Chronic) Diarrhea (Acute) Suicidal ideation (Resolved) Vaginal yeast infection (Acute) Vomiting (Acute) Vomiting and diarrhea (Acute) UTI (urinary tract infection) (Inactive) PCOS (polycystic ovarian syndrome) Family History Other No significant family history Social History Preferred Language: Russian Communication Ability: Effective Imaging System Administrator Required: No Beliefs That Will Affect Care: None marital status: Single Current Living Situation: Parent Current Living Situation Comment: Lives with parents. FOB abusive and not involved (Wilton Holland Jr.) Feels Safe at Home: Yes Smoking Status: Current every day smoker Tobacco Type: cigarettes Cigarettes Per Day: 4 Second Hand Exposure: No Hx Alcohol Use: No Hx Substance Use: No Review of Systems See HPI for pertinent positives & negatives. and A total of 10 systems reviewed and were otherwise negative Physical Exam Vital Signs Vital Signs - 24 hr 10/02/18 02:01 10/02/18 05:07 10/02/18 06:01 Pulse Rate 97 H Pulse Rate [Apical] 91 H 84 Pulse Rate from SpO2 Sensor 96 H Pulse Rhythm [Apical] Regular Regular Pulse Strength [Apical] Normal Normal Respiratory Rate 21 16 16 Respiratory Effort / Characteristics Non-Labored Spontaneous Non-Labored Respiratory Depth Normal Blood Pressure 114/65 Blood Pressure [Right Arm] 107/68 107/73 Blood Pressure Mean 81 Blood Pressure Mean [Right Arm] 81 84 Blood Pressure Position [Right Arm] Lying Pulse Oximetry 96 95 94 Oxygen Delivery Method Room Air Room Air Room Air 10/02/18 07:45 10/02/18 08:18 10/02/18 09:22 Pulse Rate Pulse Rate [Apical] 95 H 88 87 Pulse Rate from SpO2 Sensor Pulse Rhythm [Apical] Regular Regular Pulse Strength [Apical] Respiratory Rate 17 16 18 Respiratory Effort / Characteristics Non-Labored Non-Labored Respiratory Depth Normal Normal Normal Blood Pressure Blood Pressure [Right Arm] 113/59 L 106/61 105/65 Blood Pressure Mean Blood Pressure Mean [Right Arm] 77 76 78 Blood Pressure Position [Right Arm] Lying Lying Lying Pulse Oximetry 96 95 94 Oxygen Delivery Method Room Air Room Air Room Air 10/02/18 10:15 Pulse Rate Pulse Rate [Apical] 95 H Pulse Rate from SpO2 Sensor Pulse Rhythm [Apical] Regular Pulse Strength [Apical] Respiratory Rate 17 Respiratory Effort / Characteristics Non-Labored Respiratory Depth Normal Blood Pressure Blood Pressure [Right Arm] 111/76 Blood Pressure Mean Blood Pressure Mean [Right Arm] 87 Blood Pressure Position [Right Arm] Lying Pulse Oximetry 98 Oxygen Delivery Method Room Air GENERAL: Awake, alert, drowsy-appearing, in no distress HENT: Normocephalic, atraumatic. Oropharynx with dry mucous membranes and otherwise unremarkable. EYES: Normal conjunctiva. Sclera non-icteric. EOMI. No nystamgus. PEARRL. NECK: Supple. No nuchal rigidity. FROM. No JVD. RESPIRATORY: Clear to auscultation. CARDIAC: Regular rate, normal rhythm. Extremities warm and well perfused. Pulses equal. ABDOMEN: Soft, non-distended. No tenderness to palpation. No rebound or guarding. No masses. RECTAL: Deferred. MUSCULOSKELETAL: Chest examination reveals no tenderness. The back is symmetrical on inspection without obvious abnormality. There is no CVA tenderness to palpation. No joint edema. LOWER EXTREMITIES: Calves are equal size bilaterally and non-tender. No edema. No discoloration. NEURO: Normal sensorium. No sensory or motor deficits noted. Normal reflexes, no clonus. SKIN: No rash or jaundice noted. PSYCH: Positive depression, positive suicidal gesture/attempt. Course 2144: The patient was evaluated in room C07, and a complete history and physical examination were performed. 2199: The patient was moved to room A05 to metabolize the rest of the Ativan before the psych casework manager can evaluate her. 0030: The patient was signed out to Dr. Karimi at change of shift. Administered Medications Aripiprazole (Abilify) 5 mg PO HS MISTY Stop: 11/01/18 20:59 Last Admin: 10/02/18 20:53 Dose: 5 mg Documented by: [id number] Miscellaneous (Remove Nicoderm Patch) 1 ea N/A HS MISTY Stop: 11/01/18 21:59 Last Admin: 10/02/18 20:52 Dose: Not Given Documented by: [id number] Nicotine (Nicoderm Cq) 14 mg TD QAM MISTY Stop: 11/01/18 14:29 Last Admin: 10/02/18 20:40 Dose: Not Given Documented by: [id number] Discontinued Medications Sodium Chloride (Nss 1000ml) 1,000 mls @ 999 mls/hr IV .Q1H1M MISTY Stop: 10/01/18 23:00 Last Infusion: 10/01/18 23:10 Dose: 0 mls/hr Documented by: [id number] Admin: 10/01/18 22:23 Dose: 999 mls/hr Documented by: [id number] Medical Decision Making Differential Diagnosis Differential diagnosis: Etiologies such as toxicological process, infection, hypoglycemia, electrolyte abnormalities, cardiac sources, intracerebral event, neurologic process, as well as others were entertained. Medical Records Attestation: I reviewed the patient's medical records. Home Medications Current Medication List: was personally reviewed by me Laboratory Data Attestation: I reviewed the patient's lab results. Result diagrams: 10/01/18 21:31 10/01/18 21:31 Lab Results 10/01/18 10/01/18 10/01/18 Range/Units 21:31 21:31 21:31 WBC 7.34 (4.8-10.8) K/uL RBC 4.19 L (4.2-5.4) M/uL Hgb 11.1 L (12.0-16.0) g/dL Hct 33.9 L (37-47) % MCV 80.9 (80-100) fL MCH 26.5 (25-34) pg MCHC 32.7 (32-36) g/dL RDW Std Deviation 47.5 H (36.4-46.3) fL RDW Coeff of Shad 16.1 H (11.5-14.5) % Plt Count 209 (130-400) K/uL MPV 10.9 H (7.4-10.4) fL Immature Gran % (Auto) 0.1 % Neut % (Auto) 69.6 % Lymph % (Auto) 19.1 % [place] % (Auto) 5.7 % Eos % (Auto) 5.4 % Baso % (Auto) 0.1 % Immature Gran # (Auto) 0.01 (0.00-0.02) K/uL Neut # (Auto) 5.10 (1.4-6.5) K/uL Lymph # (Auto) 1.40 (1.2-3.4) K/uL [place] # (Auto) 0.42 (0.11-0.59) K/uL Eos # (Auto) 0.40 (0-0.5) K/uL Baso # (Auto) 0.01 (0-0.2) K/uL Sodium 139 (136-145) mmol/L Potassium 3.7 (3.5-5.1) mmol/L Chloride 108 H (98-107) mmol/L Carbon Dioxide 25 (21-32) mmol/L Anion Gap 7.0 (3-11) BUN 14 (7-18) mg/dl Creatinine 0.67 (0.6-1.2) mg/dl Est Cr Clr Drug Dosing 136.9 ml/min Est GFR ( Amer) 144.6 Est GFR (Non-Af Amer) 124.8 BUN/Creatinine Ratio 21.0 H (10-20) Glucose 91 (70-99) mg/dl Calcium 9.6 (8.5-10.1) mg/dl Total Bilirubin 0.2 (0.2-1) mg/dl AST 36 (15-37) U/L ALT 72 (12-78) U/L Alkaline Phosphatase 68 (45-117) U/L Total Protein 7.7 (6.4-8.2) gm/dl Albumin 3.9 (3.4-5.0) gm/dl Globulin 3.8 (2.5-4.0) gm/dl Albumin/Globulin Ratio 1.0 (0.9-2) TSH 0.633 (0.300-4.500) uIu/ml HCG, Qual (Negative) Urine Color Urine Appearance (Clear) Urine pH (4.5-7.5) Ur Specific [place] (1.000-1.030) Urine Protein (Negative) Urine Glucose (UA) (Negative) Urine Ketones (Negative) Urine Blood (Negative) Urine Nitrite (Negative) Urine Bilirubin (Negative) Urine Urobilinogen (Negative) Ur Leukocyte Esterase (Negative) Salicylates < 1.7 L (2.8-20) mg/dl Urine Opiates Screen (Neg) Ur Methadone, Qual (Neg) Acetaminophen < 2 L (10-30) ug/ml Urine Barbiturates (Neg) Ur Phencyclidine (PCP) (Neg) U Amphetamin/Meth Scrn (Neg) MDMA (Ecstasy) Screen (Neg) U Benzodiazepines Scrn (Neg) Ur Cocaine Metabolite (Neg) U Marijuana (THC) Screen (Neg) Ethyl Alcohol mg/dL (0-3) mg/dl 10/01/18 10/01/18 10/02/18 Range/Units 21:31 21:58 04:30 WBC (4.8-10.8) K/uL RBC (4.2-5.4) M/uL Hgb (12.0-16.0) g/dL Hct (37-47) % MCV (80-100) fL MCH (25-34) pg MCHC (32-36) g/dL RDW Std Deviation (36.4-46.3) fL RDW Coeff of Shad (11.5-14.5) % Plt Count (130-400) K/uL MPV (7.4-10.4) fL Immature Gran % (Auto) % Neut % (Auto) % Lymph % (Auto) % [place] % (Auto) % Eos % (Auto) % Baso % (Auto) % Immature Gran # (Auto) (0.00-0.02) K/uL Neut # (Auto) (1.4-6.5) K/uL Lymph # (Auto) (1.2-3.4) K/uL [place] # (Auto) (0.11-0.59) K/uL Eos # (Auto) (0-0.5) K/uL Baso # (Auto) (0-0.2) K/uL Sodium (136-145) mmol/L Potassium (3.5-5.1) mmol/L Chloride (98-107) mmol/L Carbon Dioxide (21-32) mmol/L Anion Gap (3-11) BUN (7-18) mg/dl Creatinine (0.6-1.2) mg/dl Est Cr Clr Drug Dosing ml/min Est GFR ( Amer) Est GFR (Non-Af Amer) BUN/Creatinine Ratio (10-20) Glucose (70-99) mg/dl Calcium (8.5-10.1) mg/dl Total Bilirubin (0.2-1) mg/dl AST (15-37) U/L ALT (12-78) U/L Alkaline Phosphatase (45-117) U/L Total Protein (6.4-8.2) gm/dl Albumin (3.4-5.0) gm/dl Globulin (2.5-4.0) gm/dl Albumin/Globulin Ratio (0.9-2) TSH (0.300-4.500) uIu/ml HCG, Qual Negative (Negative) Urine Color Urine Appearance (Clear) Urine pH (4.5-7.5) Ur Specific [place] (1.000-1.030) Urine Protein (Negative) Urine Glucose (UA) (Negative) Urine Ketones (Negative) Urine Blood (Negative) Urine Nitrite (Negative) Urine Bilirubin (Negative) Urine Urobilinogen (Negative) Ur Leukocyte Esterase (Negative) Salicylates (2.8-20) mg/dl Urine Opiates Screen Neg (Neg) Ur Methadone, Qual Neg (Neg) Acetaminophen (10-30) ug/ml Urine Barbiturates Neg (Neg) Ur Phencyclidine (PCP) Neg (Neg) U Amphetamin/Meth Scrn Neg (Neg) MDMA (Ecstasy) Screen Neg (Neg) U Benzodiazepines Scrn Pos H (Neg) Ur Cocaine Metabolite Neg (Neg) U Marijuana (THC) Screen Neg (Neg) Ethyl Alcohol mg/dL < 3.0 (0-3) mg/dl 10/02/18 Range/Units 04:30 WBC (4.8-10.8) K/uL RBC (4.2-5.4) M/uL Hgb (12.0-16.0) g/dL Hct (37-47) % MCV (80-100) fL MCH (25-34) pg MCHC (32-36) g/dL RDW Std Deviation (36.4-46.3) fL RDW Coeff of Shad (11.5-14.5) % Plt Count (130-400) K/uL MPV (7.4-10.4) fL Immature Gran % (Auto) % Neut % (Auto) % Lymph % (Auto) % [place] % (Auto) % Eos % (Auto) % Baso % (Auto) % Immature Gran # (Auto) (0.00-0.02) K/uL Neut # (Auto) (1.4-6.5) K/uL Lymph # (Auto) (1.2-3.4) K/uL [place] # (Auto) (0.11-0.59) K/uL Eos # (Auto) (0-0.5) K/uL Baso # (Auto) (0-0.2) K/uL Sodium (136-145) mmol/L Potassium (3.5-5.1) mmol/L Chloride (98-107) mmol/L Carbon Dioxide (21-32) mmol/L Anion Gap (3-11) BUN (7-18) mg/dl Creatinine (0.6-1.2) mg/dl Est Cr Clr Drug Dosing ml/min Est GFR ( Amer) Est GFR (Non-Af Amer) BUN/Creatinine Ratio (10-20) Glucose (70-99) mg/dl Calcium (8.5-10.1) mg/dl Total Bilirubin (0.2-1) mg/dl AST (15-37) U/L ALT (12-78) U/L Alkaline Phosphatase (45-117) U/L Total Protein (6.4-8.2) gm/dl Albumin (3.4-5.0) gm/dl Globulin (2.5-4.0) gm/dl Albumin/Globulin Ratio (0.9-2) TSH (0.300-4.500) uIu/ml HCG, Qual (Negative) Urine Color Yellow Urine Appearance Clear (Clear) Urine pH 5.5 (4.5-7.5) Ur Specific [place] 1.014 (1.000-1.030) Urine Protein Negative (Negative) Urine Glucose (UA) Negative (Negative) Urine Ketones Negative (Negative) Urine Blood Negative (Negative) Urine Nitrite Negative (Negative) Urine Bilirubin Negative (Negative) Urine Urobilinogen Negative (Negative) Ur Leukocyte Esterase Negative (Negative) Salicylates (2.8-20) mg/dl Urine Opiates Screen (Neg) Ur Methadone, Qual (Neg) Acetaminophen (10-30) ug/ml Urine Barbiturates (Neg) Ur Phencyclidine (PCP) (Neg) U Amphetamin/Meth Scrn (Neg) MDMA (Ecstasy) Screen (Neg) U Benzodiazepines Scrn (Neg) Ur Cocaine Metabolite (Neg) U Marijuana (THC) Screen (Neg) Ethyl Alcohol mg/dL (0-3) mg/dl ECG Data Attestation: I personally reviewed and interpreted this ECG as follows: Indication: toxicologic Rate (beats per minute): 108 Rhythm: sinus tachycardia Findings: + other (Normal axis, Normal intervals); no acute ischemic change Blood Pressure Blood Pressure Findings: Normal blood pressure MDM Narrative The patient is a 23-year-old woman with a past medical history of depression and suicidal ideation who presents emergency department after a suicide attempt/gesture per hpi. The patient presents emergency department after the patient's friend was concerned about tach she received and how her friend sounded over the phone and so went to her friend's house and brought her to the emergency department. The friend reports that the patient has been depressed for the past several months setting of of her child 4 months ago and is currently undergoing a custody dispute with her father. The patient's child per the friend is currently with the patient's father. When the patient is asked if she was attempting to kill herself she says that she was not but that she was trying to hurt her self. However, when asked what her goal was regarding her overdose she becomes evasive and looks away. On exam the patient is drowsy but she is alert. She has normal reflexes and no clonus. EKG unremarkable. WBC within normal limits. H/H 11.1/33.9 similar to prior values. Platelets within normal limits. Chemistry without acidosis. LFTs and electrolytes unremarkable. UA and urine drug screen pending as well as improvement in the patient's alertness after she metabolizes from her overdose. However, given the patient's concerning overdose and evasiveness regarding her plans and depression I have high concern for the patient's safety feel that she deserves inpatient psychiatric treatment. Unfortunately, the patient's friend left the emergency department prior to providing a petition and her contact information is not available. Therefore we will proceed with a dual physician 302. Case was sig crystal out to Dr. Karimi with sobriety pending to proceed with complete mental health evaluation and placement. Impression & Plan Suicide attempt by benzodiazepine overdose Discharge Plan Visit Data *Final* Discharge Date/Time: 10/02/18 12:07 Chief Complaint: Overdose (Intentional) Stated Complaint: TOOK PILLS ED Provider: Franc Banerjee Discharge Problem: Suicide attempt by benzodiazepine overdose Patient Disposition: Admitted As Inpatient Discharge Instructions Interventions: ED Discharge Assessment Last Done: 10/02/18 12:07 The scribe's documentation has been prepared under my direction and personally reviewed by me in its entirety. I confirm that the note above accurately reflects all work, treatment, procedures, and medical decision making performed by me.
[2018-10-02 04:40] LABS: Appearance Urine Clear (Clear); Bilirubin Urine Negative (Negative); Blood Urine Negative (Negative); Color Urine Yellow; Glucose Urine UA Negative (Negative); Ketones Urine Negative (Negative); Leukocyte Esterase Urine Negative (Negative); Nitrite Urine Negative (Negative); Protein Urine Negative (Negative); Specific Gravity Urine 1.014 (1.000-1.030); Urobilinogen Urine Negative (Negative); pH Urine 5.5 (4.5-7.5)
[2018-10-02 04:59] LABS: Amphetamines+Metham, Urine Neg (Neg); Barbiturates, Urine Neg (Neg); Benzodiazepine, Urine Pos (Neg); Cocaine, Urine Neg (Neg); MDMA (Ecstacy), Urine Neg (Neg); Methadone, Urine Neg (Neg); Opiate, Urine Neg (Neg); Phencyclidine, Urine Neg (Neg)
--- NOTE | 2018-10-02 05:10 | Emergency Department Note ---
ED Visit Note I received this patient in signout at the change of shift from Dr. Simons, pending medical clearance from the benzodiazepine overdose. 0500-patient was discussed with the mental health lining caser. Patient was evaluated and had apparently admitted to suicidal intention. She was somewhat groggy on my evaluation. Text messages had been sent to a friend, who subsequently went to check on the patient. Patient's baby is in the care of the patient's father currently. Patient's phone was placed on a sprinkling system irrigator so that text message can be reviewed. Patient will be observed for until she reaches a more sober state from the benzodiazepine overdose to make a 302 determination. 0626-patient signed out to Dr. Banerjee at the change of shift as she remains groogy. Reeval pending a more mentally clear state. .
--- NOTE | 2018-10-02 07:19 | Emergency Department Note ---
ED Visit Note Received patient in signout. The patient is here under 302 warrant. Patient was accepted to [address] .
[2018-10-02] MEDS ORDERED: SODIUM CHLORIDE 0.65% NA SOLN 45 ML (OCEAN) PRN (11:41)
[2018-10-02] MEDS ORDERED: MAGNESIUM HYDROXIDE SUSP 30 ML UDC PO PRN (11:41)
[2018-10-02] MEDS ORDERED: BISMUTH SUBSALICYLATE PER ML OMNICELL CHARGE PO PRN (11:41)
[2018-10-02] MEDS ORDERED: ACETAMINOPHEN 325 MG TAB PO PRN (11:41)
[2018-10-02] MEDS ORDERED: ALUMINUM/MAGNESIUM SUSP 30 ML UDC PO PRN (11:41)
[2018-10-02] MEDS ORDERED: ONDANSETRON 4 MG OD TAB PO PRN (11:43)
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
[2018-10-02] MEDS ORDERED: NICOTINE POLACRILEX 2 MG GUM MT PRN (13:59)
[2018-10-02] MEDS: NICOTINE 14 MG/24 HR PATCH TD SCH (20:40)
[2018-10-02] MEDS ORDERED: ARIPiprazole 5 MG TAB PO SCH (21:00)
[2018-10-03 07:55] LABS: Glucose Fasting 80 mg/dl (70-99)
[2018-10-03 08:02] LABS: Chol HDL Ratio 4; Cholesterol 190 mg/dl (0-200); HDL Cholesterol 44 mg/dl; LDL Cholesterol Calculated 126 mg/dl; Triglycerides 101 mg/dl (0-150); VLDL Cholesterol 20 mg/dl
[2018-10-03] MEDS: LEVOTHYROXINE SODIUM 50 MCG TABLET PO SCH (09:08)
[2018-10-03] MEDS: SERTRALINE HCL 100 MG TABLET PO SCH (09:08)
[2018-10-03] MEDS: NICOTINE 14 MG/24 HR PATCH TD SCH (09:10)
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
[2018-10-03] MEDS: ARIPiprazole 5 MG TAB PO SCH (15:33)
[2018-10-04] MEDS: LEVOTHYROXINE SODIUM 50 MCG TABLET PO SCH (08:44)
[2018-10-04] MEDS: SERTRALINE HCL 100 MG TABLET PO SCH (08:45)
[2018-10-04] MEDS: ARIPiprazole 5 MG TAB PO SCH (08:45)
[2018-10-04] MEDS: NICOTINE 14 MG/24 HR PATCH TD SCH (08:45)
--- NOTE | 2018-10-04 13:23 | Psychiatric Progress Note ---
Date of Service October 04, 2018 Impression / Recommendations Impression Patient reports continued resolution of suicidal ideation and appearing more forward looking. She has signed a 72-hour notice last evening. Continued monitoring in controlled environment felt to be necessary secondary to elevated risk for harm if discharged prematurely in setting of recent toxic ingestion. (1) Suicide attempt by benzodiazepine overdose: 10/03/18 -Today, the patient reports that she decided to take an overdose of Ativan because she was feeling hopeless and worthless. She indicates that, at the time, she thought that her infant daughter would be better off where she to be raised by someone else. She now reports that she is no longer feeling that way and that her mood has improved considerably. -The patient reports that she is no longer experiencing suicidal thoughts and states, directly, that she is relieved that her suicide attempt did not succeed. -She also acknowledges that her individual coping strategies were not successful. She notes that she was aware that she needed to disclose her worsening depression, and ask for help. However, she said that she made a mistake of "not wanting to be a burden," and, also, thought that if she "waited" the symptoms of depression would improve and resolve. Accordingly, we will be working on enhancing the patient's coping strategies 10/04 -Suicidal ideation remains resolved -72-hour notice time last evening (2) Tobacco abuse: 10/03/18 -Smoking cessation information provided. The patient will be receiving nicotine replacement medications. (3) Depression: 10/03/18 -The patient's personal assessment that her underlying history of recurrent depression was exacerbated by hormonal changes subsequent to the of her several months ago. -Aripiprazole 5 mg at bedtime has recently been added as an adjunct to sertraline 200 mg daily. -Sertraline 200 mg daily will be continued. -The patient has been referred to group and activity therapies, with goals that include improving individual coping strategies and developing a safety plan. 10/04 -We will continue the newly started Abilify 5 mg daily in combination with her understanding sertraline 200 mg daily - Family meeting to occur today (4) Anxiety: 01/03/19 -The patient reports anxious distress, with symptoms that include occasional panic, and agoraphobia. She reports that lorazepam is a medication that allows her to manage her anxiety to the degree that she can leave the house and face situations that would normally cause her to be distressed. However, she also says that she uses lorazepam sparingly, and does not take it unless she will be facing particularly stressful circumstances. The patient reports that, recently, stressful circumstances have included leaving her home for any extended period of time or to travel more than a few blocks from her home. -Given the patient's recent lorazepam overdose, I explained to the patient that we would be reluctant to prescribe lorazepam or other benzodiazepine, and that the effort would be to manage her anxiety through other means, at least until she is more psychiatrically stable and the risk of suicide has been largely abated. -We will attempt to change the dose of aripiprazole from aripiprazole 5 mg at bedtime to aripiprazole 5 mg in the morning, with the hope that this may also help with anxiety. Inventory Assets Strengths: Supportive family. Supportive friends. We will bonded with her infant daughter. Needs: Improve mood regulation. Anxiety relief. Risk Factors Assessment Male: No : Yes Do You Have Access To A Gun?: No Health Problems: No Mental Health Diagnoses: Yes Substance Use Disorders: No Previous Attempt: Yes Previous Attempt; Highly Lethal: No Previous Attempt; Planned: Yes Previous Attempt; Didn't Tell Anyone: No Family History of Suicide: No Previous Psychiatric Hospitalization: Yes Hopelessness: No Smoker: Yes Protective Factors Assessment Holiness Beliefs: No : No Responsible for Young Children: Yes Employed: No Stable Relationships: Yes Supportive Family: Yes Good Rapport with Provider: Yes Absence of Any Risk Factors Above: No Interval History Chief Complaint "I actually feel good. I'm glad to be alive." Review of Systems Notes fatigue Sleep Information Total Hours of Sleep: 7 Sleep Comments: pt on q-15 minute checks Meal Information Percent Meal Consumed - Breakfast: 50 Percent Meal Consumed - Lunch: 50 Percent Meal Consumed - Dinner: 50 Subjective Subjective Patient was seen & assessed and interval progress reviewed with Treatment Team. Patient did sign a 72-hour notice last evening. This morning she states that she is eager to be discharged to be with her 2-month-old daughter. She describes feeling glad to be alive and seems to appreciate that she is lou to be alive following benzodiazepine overdose. She is looking forward to a family meeting today. She describes her mood this morning is "good" and reports continued resolution of suicidal ideation or impulse for self-harm. She denies any negative thoughts towards her daughter. She identifies multiple established outpatient resources including psychiatric med management, psychotherapy, home nursing, and parents plus. She denies any obvious side effects so far on the Abilify. She reports the Zoloft has been a long-standing and "good medicine" for her. Physical Exam Psychiatric Orientation: alert and cooperative Apperance: appropriately dressed and appropriately groomed Eye Contact: good eye contact Motor Behavior: steady gait and station Affect: euthymic affect Mood: no depressed mood ("good") Thought Process: goal directed thought process Thought Content: reality based without delusions Suicidal Thoughts: denies suicidal thoughts, denies suicidal plan and denies suicidal intent Homicidal Thoughts: denies homicidal thoughts Cognition: attention grossly intact Estimated Intelligence: average estimated intelligence Insight: + fair insight Judgement: + fair judgement Vital Signs (Past 24 Hours) Last Vital Signs Temp 36.7 C 10/04/18 06:42 Pulse 96 H 10/04/18 06:43 Resp 16 10/04/18 06:42 BP 98/65 L 10/04/18 06:43 Pulse Ox 98 10/02/18 10:15 Results & Data Current Inpatient Medications Current Inpatient Medications: Current Inpatient Medications Acetaminophen (Tylenol) 650 mg PO Q4H PRN PRN Reason: Headache or Minor Fever Stop: 11/01/18 11:40 Al Hydrox/Mg Hydrox/Simethicone (Maalox) 30 ml PO Q4H PRN PRN Reason: GI Upset Stop: 11/01/18 11:40 Aripiprazole (Abilify) 5 mg PO QAM MISTY Stop: 11/02/18 15:14 Last Admin: 10/04/18 08:45 Dose: 5 mg Documented by: Bismuth Subsalicylate (Kaopectate) 15 ml PO PRN PRN PRN Reason: Loose Stool Stop: 11/01/18 11:40 Hydroxyzine HCl (Vistaril) 25 mg PO Q4H PRN PRN Reason: Anxiety Stop: 11/01/18 11:40 Hydroxyzine HCl (Vistaril) 50 mg PO HSZ PRN PRN Reason: Insomnia Stop: 11/01/18 11:40 Levothyroxine Sodium (Synthroid) 50 mcg PO DAILYBB MISTY Stop: 11/02/18 07:59 Last Admin: 10/04/18 08:44 Dose: 50 mcg Documented by: Magnesium Hydroxide (Milk Of Magnesia) 30 ml PO DAILY PRN PRN Reason: Heartburn Stop: 11/01/18 11:40 Miscellaneous (Remove Nicoderm Patch) 1 ea N/A HS MISTY Stop: 11/01/18 21:59 Last Admin: 10/03/18 21:58 Dose: 1 ea Documented by: Nicotine (Nicoderm Cq) 14 mg TD QAM MISTY Stop: 11/01/18 14:29 Last Admin: 10/04/18 08:45 Dose: 14 mg Documented by: Nicotine Polacrilex (Nicorette 2mg) 1 piece MT PRN PRN PRN Reason: nicotine cravings Stop: 11/01/18 13:58 Ondansetron HCl (Zofran Odt) 4 mg PO Q6H PRN PRN Reason: nausea and vomiting Stop: 11/01/18 11:42 Sertraline HCl (Zoloft) 200 mg PO QAM MISTY Stop: 11/02/18 08:59 Last Admin: 10/04/18 08:45 Dose: 200 mg Documented by: Sodium Chloride ([place] Nasal) 1 - 2 sprays NA PRN PRN PRN Reason: Nasal Dryness/Congestion Stop: 11/01/18 11:40 Post Discharge Appointments Primary Care Physician Name Of Family Doctor: [facility] - Karley Gillette PA-C Primary Care Time of Appointment with PCP: follow up as needed. Provider Appointment Comment: [address] [place] [address] Psychiatrist Name of Psychiatrist: Ifrah Britton Psychiatrist's Date of Appointment with Psychiatrist: 10/17/18 Time of Appointment with Psychiatrist: 1:40pm Psychiatric Appointment Comment: [address] [facility] ([place] [address] Therapist Name of Therapist: Robert Stephenson Therapist's Date of Therapist Appointment: 10/09/18 Time of Therapist Appointment: 11am Therapy Appointment Comment: She will come to your house. Pack Master Name of Pack Master: ELI Mello CPT Code CPT Code 00770
[2018-10-05] MEDS: LEVOTHYROXINE SODIUM 50 MCG TABLET PO SCH (09:29)
[2018-10-05] MEDS: SERTRALINE HCL 100 MG TABLET PO SCH (09:30)
[2018-10-05] MEDS: ARIPiprazole 5 MG TAB PO SCH (09:30)
[2018-10-05] MEDS: NICOTINE 14 MG/24 HR PATCH TD SCH (09:30)
--- NOTE | 2018-10-05 11:32 | Psychiatric Progress Note ---
Date of Service October 04, 2018 Impression / Recommendations Impression Patient continues to deny recurrence of suicidal ideation. Her 72-hour notice will come due tomorrow evening. Presently there are no grounds to pursue involuntary commitment and we expect likely discharge tomorrow however she was reminded that she can rescind the 72-hour notice and we can extend her stay if necessary. (1) Suicide attempt by benzodiazepine overdose: 10/03/18 -Today, the patient reports that she decided to take an overdose of Ativan because she was feeling hopeless and worthless. She indicates that, at the time, she thought that her infant daughter would be better off where she to be raised by someone else. She now reports that she is no longer feeling that way and that her mood has improved considerably. -The patient reports that she is no longer experiencing suicidal thoughts and states, directly, that she is relieved that her suicide attempt did not succeed. -She also acknowledges that her individual coping strategies were not successful. She notes that she was aware that she needed to disclose her worsening depression, and ask for help. However, she said that she made a mistake of "not wanting to be a burden," and, also, thought that if she "waited" the symptoms of depression would improve and resolve. Accordingly, we will be working on enhancing the patient's coping strategies 10/04 -Suicidal ideation remains resolved -72-hour notice time last evening 10/05 -No further suicidal ideation. Patient endorses feeling safe for discharge. Has constructed safety plan. We expect likely discharge tomorrow (2) Tobacco abuse: 10/03/18 -Smoking cessation information provided. The patient will be receiving nicotine replacement medications. (3) Depression: 10/03/18 -The patient's personal assessment that her underlying history of recurrent depression was exacerbated by hormonal changes subsequent to the of her infant several months ago. -Aripiprazole 5 mg at bedtime has recently been added as an adjunct to sertraline 200 mg daily. -Sertraline 200 mg daily will be continued. -The patient has been referred to group and activity therapies, with goals that include improving individual coping strategies and developing a safety plan. 10/04 -We will continue the newly started Abilify 5 mg daily in combination with her understanding sertraline 200 mg daily - Family meeting to occur today 10/05 -Continue medication regimen unchanged -Reviewed lipid panel and fasting glucose unremarkable on 10/03/2018 for baseline metabolic monitoring on the atypical antipsychotic (4) Anxiety: 01/03/19 -The patient reports anxious distress, with symptoms that include occasional panic, and agoraphobia. She reports that lorazepam is a medication that allows her to manage her anxiety to the degree that she can leave the house and face situations that would normally cause her to be distressed. However, she also says that she uses lorazepam sparingly, and does not take it unless she will be facing particularly stressful circumstances. The patient reports that, recently, stressful circumstances have included leaving her home for any extended period of time or to travel more than a few blocks from her home. -Given the patient's recent lorazepam overdose, I explained to the patient that we would be reluctant to prescribe lorazepam or other benzodiazepine, and that the effort would be to manage her anxiety through other means, at least until she is more psychiatrically stable and the risk of suicide has been largely abated. -We will attempt to change the dose of aripiprazole from aripiprazole 5 mg at bedtime to aripiprazole 5 mg in the morning, with the hope that this may also he lp with anxiety. Inventory Assets Strengths: Supportive family. Supportive friends. We will bonded with her daughter. Needs: Improve mood regulation. Anxiety relief. Risk Factors Assessment Male: No : Yes Do You Have Access To A Gun?: No Health Problems: No Mental Health Diagnoses: Yes Substance Use Disorders: No Previous Attempt: Yes Previous Attempt; Highly Lethal: No Previous Attempt; Planned: Yes Previous Attempt; Didn't Tell Anyone: No Family History of Suicide: No Previous Psychiatric Hospitalization: Yes Hopelessness: No Smoker: Yes Protective Factors Assessment Adventist Beliefs: No : No Responsible for Young Children: Yes Employed: No Stable Relationships: Yes Supportive Family: Yes Good Rapport with Provider: Yes Absence of Any Risk Factors Above: No Interval History Chief Complaint "I feel better but I do not feel totally happy". Review of Systems Sleep Information Total Hours of Sleep: 7 Sleep Comments: pt on q-15 minute checks Meal Information Percent Meal Consumed - Breakfast: 50 Percent Meal Consumed - Lunch: 50 Percent Meal Consumed - Dinner: 50 Subjective Subjective Patient was seen & assessed and interval progress reviewed with Treatment Team. Per nursing, patient appeared to have a good day on the unit yesterday. Family visit was positive. Patient expressed feeling remorseful for her overdose attempt. Rated mood 6 out of 10 last evening. Reviewed that [facility] has been involved in her case already. Her 72-hour notice will be up tomorrow at 2100. On interview this morning patient describes tendency to isolate and not utilize supports when asked to identify concerns about return to home environment. To help with this she is planning to have her uncle stay with her for several days and a friend will be visiting in the afternoons. We discussed other means to reach out to others. She expresses readiness for discharge. She denies any ongoing suicidal ideation or self-injurious impulses. She describes feeling hopeful about her future. At time of interview she complains that fatigue is negatively impacting mood but denies generalized mood decompensation in last 24 hours. She is aware that she can rescind her 72-hour notice. Physical Exam Psychiatric Orientation: alert and cooperative Apperance: appropriately dressed and appropriately groomed; not disheveled Eye Contact: good eye contact Motor Behavior: steady gait and station and no abnormal motor movements Speech: normal rate/rhythm/volume of speech Affect calm Mood: no depressed mood Thought Process: goal directed thought process and clear/coherent thought process Thought Content: reality based without delusions Suicidal Thoughts: denies suicidal thoughts, denies suicidal plan and denies suicidal intent Homicidal Thoughts: denies homicidal thoughts Hallucinations: no auditory hallucinations, no visual hallucinations and no tactile hallucinations Cognition: recent memory grossly intact and attention grossly intact Estimated Intelligence: consistent with education level Insight: + fair insight Judgement: + fair judgement Vital Signs (Past 24 Hours) Last Vital Signs Temp 36.7 C 10/04/18 06:42 Pulse 96 H 10/04/18 06:43 Resp 16 10/04/18 06:42 BP 98/65 L 10/04/18 06:43 Pulse Ox 98 10/02/18 10:15 Results & Data Current Inpatient Medications Current Inpatient Medications: Current Inpatient Medications Acetaminophen (Tylenol) 650 mg PO Q4H PRN PRN Reason: Headache or Minor Fever Stop: 11/01/18 11:40 Al Hydrox/Mg Hydrox/Simethicone (Maalox) 30 ml PO Q4H PRN PRN Reason: GI Upset Stop: 11/01/18 11:40 Aripiprazole (Abilify) 5 mg PO QAM MISTY Stop: 11/02/18 15:14 Last Admin: 10/04/18 08:45 Dose: 5 mg Documented by: Bismuth Subsalicylate (Kaopectate) 15 ml PO PRN PRN PRN Reason: Loose Stool Stop: 11/01/18 11:40 Hydroxyzine HCl (Vistaril) 25 mg PO Q4H PRN PRN Reason: Anxiety Stop: 11/01/18 11:40 Hydroxyzine HCl (Vistaril) 50 mg PO HSZ PRN PRN Reason: Insomnia Stop: 11/01/18 11:40 Levothyroxine Sodium (Synthroid) 50 mcg PO DAILYBB IMSTY Stop: 11/02/18 07:59 Last Admin: 10/04/18 08:44 Dose: 50 mcg Documented by: Magnesium Hydroxide (Milk Of Magnesia) 30 ml PO DAILY PRN PRN Reason: Heartburn Stop: 11/01/18 11:40 Miscellaneous (Remove Nicoderm Patch) 1 ea N/A HS MISTY Stop: 11/01/18 21:59 Last Admin: 10/03/18 21:58 Dose: 1 ea Documented by: Nicotine (Nicoderm Cq) 14 mg TD QAM [facility] Stop: 11/01/18 14:29 Last Admin: 10/04/18 08:45 Dose: 14 mg Documented by: Nicotine Polacrilex (Nicorette 2mg) 1 piece MT PRN PRN PRN Reason: nicotine cravings Stop: 11/01/18 13:58 Ondansetron HCl (Zofran Odt) 4 mg PO Q6H PRN PRN Reason: nausea and vomiting Stop: 11/01/18 11:42 Sertraline HCl (Zoloft) 200 mg PO QAM MISTY Stop: 11/02/18 08:59 Last Admin: 10/04/18 08:45 Dose: 200 mg Documented by: Sodium Chloride ([place] Nasal) 1 - 2 sprays NA PRN PRN PRN Reason: Nasal Dryness/Congestion Stop: 11/01/18 11:40 Post Discharge Appointments Primary Care Physician Name Of Family Doctor: [facility] - Karley Gillette PA-C Primary Care Time of Appointment with PCP: follow up as needed. Provider Appointment Comment: [address], [place] [address] Psychiatrist Name of Psychiatrist: Ifrah Britton Psychiatrist's Date of Appointment with Psychiatrist: 10/17/18 Time of Appointment with Psychiatrist: 1:40pm Psychiatric Appointment Comment: Ronit Prak[place] [address] Therapist Name of Therapist: Robert Stephenson Therapist's Date of Therapist Appointment: 10/09/18 Time of Therapist Appointment: 11am Therapy Appointment Comment: She will come to your house. Medical Affairs Specialist Name of Medical Affairs Specialist: ELI Mello CPT Code CPT Code 28892
[2018-10-05 20:53] LABS: 7-Aminoclonaz, Confirm NEGATIVE NG/ML (CUTOFF=25); Hydro-Alp Ur, GC/MS NEGATIVE NG/ML (CUTOFF=25); Hydroxyethylflurazepam, Conf NEGATIVE NG/ML (CUTOFF=50); Hydroxytriazolam NEGATIVE NG/ML (CUTOFF=50); Lorazepam, Ur GC/MS >2000 NG/ML (CUTOFF=50); Nordiazepam, Confirm NEGATIVE NG/ML (CUTOFF=50); Oxazepam Ur, GC/MS NEGATIVE NG/ML (CUTOFF=50); Temazepam, Confirm NEGATIVE NG/ML (CUTOFF=50)
[2018-10-06] MEDS: SERTRALINE HCL 100 MG TABLET PO SCH (08:02)
[2018-10-06] MEDS: ARIPiprazole 5 MG TAB PO SCH (08:02)
[2018-10-06] MEDS: LEVOTHYROXINE SODIUM 50 MCG TABLET PO SCH (08:02)
[2018-10-06] MEDS: NICOTINE 14 MG/24 HR PATCH TD SCH (08:03)
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
== END 2018-10-06 11:00 | disposition home or self-care (01) | DRG 881 ==
LOC: ED 20:57 → 3S 10-02 11:41

== ENCOUNTER 2022-05-28 07:44 | Inpatient (IN) ==
[2022-05-28] MEDS ORDERED: LIDOCAINE 1% LOCAL 20 ML VIAL INFIL PRN (08:52)
[2022-05-28] MEDS ORDERED: OXYTOCIN 30 UNITS/500 ML BAG IV PRN ×3 (08:52→17:45)
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
[2022-05-28] MEDS: LACTATED RINGER'S 1,000 ML IV PRN ×2 (09:05→13:47)
[2022-05-28 09:29] LABS: Hematocrit (blood only) 29.7 % (37.0-47.0); Hemoglobin 9.6 g/dl (12.0-16.0); Mean Corpuscular Hemoglobin 26.9 pg (25.0-34.0); Mean Corpuscular Hgb Conc 32.3 g/dL (32.0-36.0); Mean Corpuscular Volume 83.2 fL (80.0-100.0); Mean Platelet Volume 11.1 fL (9.4-12.4); Platelet Count 168 K/uL (130-400); RDW Coefficient of Variation 14.8 % (11.5-14.5); RDW Standard Deviation 44.7 fL (36.4-46.3); Red Blood Count 3.57 M/uL (4.20-5.40); White Blood Count 6.86 K/ul (4.8-10.8)
[2022-05-28 09:48] LABS: Alanine Aminotransferase 49 U/L (7-52); Albumin Level 3.5 gm/dl (3.4-5.0); Alkaline Phosphatase 196 U/L (34-104); Anion Gap 9 (3-11); Aspartate Aminotransferase 47 U/L (13-39); BUN Creatinine Ratio 18.5 (10-20); Bilirubin,Total 0.4 mg/dl (0.2-1.0); Blood Urea Nitrogen 10 mg/dl (6-23); Carbon Dioxide 21 mmol/L (21-32); Chloride 104 mmol/L (98-107); Creatinine Clr Calc Pharmacy 176.1 ml/min; Est GFR (African American) > 150.0 ml/min; Est GFR (Non-African American) 131.2 ml/min; Globulin 3.6 gm/dl (2.5-4.0); Glucose 71 mg/dl (70-99(Fasting)); Sodium 134 mmol/L (136-145); Total Protein 7.1 gm/dl (6.0-8.3)
[2022-05-28] MEDS ORDERED: ePHEDrine sulfate 50 MG/ML AMP ONE (13:26)
[2022-05-28] MEDS ORDERED: LIDOCAINE 2%/EPINEPHRINE 1:200,000 20 ML SDV ONE (13:27)
[2022-05-28] MEDS ORDERED: BUPIVACAINE 0.25% 30 ML VIAL ONE (13:27)
[2022-05-28] MEDS ORDERED: SODIUM CHLORIDE 0.9% INJ 10 ML VIAL ONE (13:27)
[2022-05-28] MEDS ORDERED: fentaNYL citrate 100 MCG/2 ML VIAL ONE (13:27)
[2022-05-28] MEDS ORDERED: fentaNYL 2MCG/ML ROPIVACAINE 1.25MG/ML 100 ML BAG EPI ONE (13:28)
--- NOTE | 2022-05-28 13:42 | Obstetrical Progress Note ---
Date of Service May 28, 2022 Assessment & Plan Admission and Anticipated Discharge Date Admission Date: May 28, 2022 Subjective Patient is seen and examined She feels well, mild contractions, not very painful yet. FHR categ 1 for both Baby A and B Lithium: ctxs q 3-6 min VE; 5/ 70%/-2 Patient desires epidural before AROM Continue to monitor closely Results & Data ([facility]) Vital Signs (Past 12 Hours) Vital Signs Temp Pulse Resp BP 05/28/22 12:39 83 112/65 05/28/22 11:46 86 119/67 05/28/22 11:00 18 05/28/22 11:00 36.7 C 18 05/28/22 10:59 81 121/59 L 05/28/22 09:39 16 05/28/22 09:39 36.6 C 16 05/28/22 09:38 99 H 115/77 05/28/22 08:20 97 H 115/73 05/28/22 08:12 36.9 C 16
[2022-05-28] MEDS ORDERED: NALOXONE HCL 1 MG in SODIUM CHLORIDE 0.9% 1000ML 1,000 ML IV PRN (13:53)
[2022-05-28] MEDS ORDERED: NALBUPHINE HCL INJ 10 MG/ML AMP IV PRN (13:53)
[2022-05-28] MEDS ORDERED: ONDANSETRON INJ 2 MG/ML 2 ML VIAL IV PRN (13:53)
[2022-05-28] MEDS ORDERED: fentaNYL 2MCG/ML ROPIVACAINE 1.25MG/ML 100 ML BAG EPI PRN (13:53)
[2022-05-28] MEDS ORDERED: ePHEDrine sulfate 50 MG/ML AMP IV PRN (13:53)
[2022-05-28] MEDS ORDERED: NALOXONE HCL 0.4 MG/1 ML VIAL/CARP IV PRN (13:53)
[2022-05-28] MEDS ORDERED: diphenhydrAMINE 50 MG/ML VIAL IV PRN (13:53)
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
--- NOTE | 2022-05-28 15:37 | Obstetrical Progress Note ---
Date of Service May 28, 2022 Assessment & Plan Admission and Anticipated Discharge Date Admission Date: May 28, 2022 Subjective Patient is reevaluated. She is comfortable now after epidural VSS Afebrile FHR categ 1 for both Baby A, B VE: 6/ 80%/ -1, AROM'ed, clear fluid [place] ctxs q 3-4 min, Oxytocin at 15 miu/min Continue to monitor closely Results & Data ([facility]) Vital Signs (Past 12 Hours) Vital Signs Temp Pulse Resp BP Pulse Ox 05/28/22 15:32 70 127/79 05/28/22 15:30 65 98 05/28/22 15:26 68 118/73 05/28/22 15:25 65 98 05/28/22 15:20 99 05/28/22 15:20 76 05/28/22 15:20 77 124/77 05/28/22 15:15 98 05/28/22 15:15 81 05/28/22 15:15 70 119/76 05/28/22 15:12 77 116/69 05/28/22 15:10 63 98 05/28/22 15:05 119/75 05/28/22 15:00 86 97 05/28/22 15:01 36.7 C 89 18 111/72 05/28/22 14:57 88 112/69 05/28/22 14:56 80 92 05/28/22 14:55 77 99 05/28/22 14:52 75 120/71 05/28/22 14:50 85 98 05/28/22 14:46 80 119/74 05/28/22 14:47 75 124/71 05/28/22 14:45 74 100 05/28/22 14:40 77 117/75 99 05/28/22 14:35 96 H 106/86 99 05/28/22 14:31 82 127/78 05/28/22 14:30 76 99 05/28/22 14:25 98 05/28/22 14:25 79 05/28/22 14:25 81 117/70 05/28/22 14:23 77 125/71 05/28/22 14:20 72 98 05/28/22 14:21 77 116/67 05/28/22 14:19 72 114/65 05/28/22 14:17 81 110/68 05/28/22 14:15 80 120/72 100 05/28/22 14:13 81 112/70 05/28/22 14:10 99 05/28/22 14:10 79 05/28/22 14:10 77 124/79 05/28/22 14:09 79 122/78 05/28/22 14:07 79 119/76 05/28/22 14:05 79 100 05/28/22 14:03 78 117/76 05/28/22 14:00 79 99 05/28/22 14:01 75 112/70 05/28/22 13:41 84 123/74 05/28/22 12:39 83 112/65 05/28/22 11:46 86 119/67 05/28/22 11:00 18 05/28/22 11:00 36.7 C 18 05/28/22 10:59 81 121/59 L 05/28/22 09:39 16 05/28/22 09:39 36.6 C 16 05/28/22 09:38 99 H 115/77 05/28/22 08:20 97 H 115/73 05/28/22 08:12 36.9 C 16
[2022-05-28] MEDS: PRENATAL VITAMIN 1 TAB PO SCH (16:22)
[2022-05-28] MEDS ORDERED: METHYLERGONOVINE MALEATE 0.2 MG/ML AMP ONE (17:22)
[2022-05-28] MEDS ORDERED: ceFAZolin 330 MG/ML 1 GM VIAL ONE (17:35)
[2022-05-28] MEDS ORDERED: ONDANSETRON INJ 2 MG/ML 2 ML VIAL ONE (17:40)
[2022-05-28] MEDS ORDERED: oxyCODONE/ACETAMINOPHEN 5mg/325mg TAB PO PRN (17:45)
[2022-05-28] MEDS ORDERED: MEASLES, MUMPS & RUBELLA VIRUS VIAL SQ ONE (17:45)
[2022-05-28] MEDS ORDERED: OXYTOCIN 30 UNITS/500 ML BAG IV SCH ×2 (17:45→18:15)
[2022-05-28] MEDS ORDERED: DIPHTHERIA/TETANUS/PERTUSSIS 0.5mL SYR/VIAL (Age 7+yrs) IM ONE (17:45)
[2022-05-28] MEDS ORDERED: METHYLERGONOVINE MALEATE 0.2 MG/ML AMP IM ONE (17:45)
[2022-05-28] MEDS ORDERED: BENZOCAINE 20% AER SPR 82.5 GM CAN EXT PRN (17:45)
[2022-05-28] MEDS ORDERED: HYDROCORTISONE ACETATE 25 MG SUPP PR PRN (17:45)
[2022-05-28] MEDS ORDERED: bisacodyL 10 MG SUPP PR PRN (17:45)
--- NOTE | 2022-05-28 17:54 | Delivery Summary ---
Vaginal Delivery Summary Date of Service May 28, 2022 Vaginal Delivery Summary Patient was found to be fluid dilated and desired to push. She was taking to the OR for delivery of twins. She was transferred to the OR bed and placed in W position with yellow fins. Patient pushed once and delivered baby A's head without difficulty. There was a loose nuchal cord around the neck x1 which was reduced. The baby was handed off to the mother that her mouth and nose were suctioned and cord was clamped times and cut at 30 seconds delay. Then the baby was given off to pediatric team with Dr. Webb. Vaginal exam was done and baby B was found to be still in vertex position with a bulging bag. Cervix was still 10 cm dilated. The bulging bag was ruptured and clear fluid was obtained again with the second push baby B was delivered without difficulty shoulders were delivered with minimal traction and handed off to the mother that her mouth and nose were suctioned and cord was clamped times and cut at 30 seconds delay. Then baby B was taking off to pediatric team with Dr. Cornell louis. Then the vagina and perineum were checked for lacerations. There were intact no lacerations were found. Then we waited for the placenta to be delivered. There were felt to be in the lower uterus but still attached. Bedside ultrasound was done and confirmed that placentas were anterior. Then a gush of blood came from uterus and one placental was felt to be lower but otherwise attached. Then manual exam was done and delivered the whole placenta manually twisting in clockwise position and completely. And uterus was explored and there found to be small pieces of membranes which were removed manually and then a bone curette was used to clean the uterine phillips anterior and posteriorly. Uterus was felt to be empty. This ultrasound was repeated and uterine cavity was seen to be empty with thin regular endometrial lining. Uterine massage was done and IV oxytocin was started and she was given IM Methergine. The bleeding slowed down and EBL was 500 mL. The mom and babies tolerated the delivery well. Baby A was a viable female infant delivered at 1706 p.m., Apgars were 8/9. Baby B was a viable female delivered at 1709 p.m. and Apgars were 8/9. The weights are pending. At the end of the procedure sponge and instrument count was correct x2. No complications happened and I was present during whole procedure.
--- NOTE | 2022-05-28 18:03 | Anesthesia Procedure Note ---
Date of Service May 28, 2022 Anesthesia Post Epidural Note Vital Signs Vital Signs: Temp Pulse Resp BP Pulse Ox 37.1 C 122 H 16 112/58 L 98 05/28/22 17:50 05/28/22 17:50 05/28/22 17:50 05/28/22 17:50 05/28/22 16:50 Pain Intensity Abdomen: Pain Intensity: 1 Notes Mental Status: alert / awake / arousable and participated in evaluation Nausea / Vomiting: adequately controlled Pain: adequately controlled Airway Patency, RR, SpO2: stable & adequate BP & HR: stable & adequate Hydration State: stable & adequate Neuraxial Anesthesia: was administered and sensory block is resolving Anesthetic Complications: no major complications apparent and Pt Satisfied with anesthetic care Epidural: Removed without complications and With tip intact
[2022-05-28] MEDS: IBUPROFEN 600 MG TAB PO PRN (18:28)
[2022-05-28] MEDS: METHYLERGONOVINE MALEATE 0.2 MG TAB PO SCH (20:55)
[2022-05-28] MEDS: DOCUSATE SODIUM 100 MG CAP PO SCH (20:55)
[2022-05-28] MEDS ORDERED: Nursing to Pharmacy Communication SCH (22:00)
[2022-05-29] MEDS: METHYLERGONOVINE MALEATE 0.2 MG TAB PO SCH ×4 (00:15→12:15)
[2022-05-29] MEDS ORDERED: ceFAZolin 2000MG 2,000 MG/15 ML SYR IV ONE (01:00)
[2022-05-29] MEDS: IBUPROFEN 600 MG TAB PO PRN ×5 (04:00→21:45)
[2022-05-29] MEDS: LEVOTHYROXINE SODIUM 50 MCG TABLET PO SCH (06:07)
[2022-05-29 06:51] LABS: Hematocrit (blood only) 22.6 % (37.0-47.0); Hemoglobin 7.3 g/dl (12.0-16.0); Mean Corpuscular Hemoglobin 26.9 pg (25.0-34.0); Mean Corpuscular Hgb Conc 32.3 g/dL (32.0-36.0); Mean Corpuscular Volume 83.4 fL (80.0-100.0); Mean Platelet Volume 11.7 fL (9.4-12.4); Platelet Count 125 K/uL (130-400); RDW Coefficient of Variation 14.7 % (11.5-14.5); RDW Standard Deviation 44.5 fL (36.4-46.3); Red Blood Count 2.71 M/uL (4.20-5.40); White Blood Count 8.15 K/ul (4.8-10.8)
[2022-05-29] MEDS: PRENATAL VITAMIN 1 TAB PO SCH (07:49)
[2022-05-29] MEDS ORDERED: PRENATAL VITAMIN 1 TAB PO SCH (08:00)
[2022-05-29] MEDS: SERTRALINE HCL 50 MG TABLET PO SCH (09:02)
[2022-05-29] MEDS: FERROUS SULFATE 325 MG TAB PO SCH (09:03)
[2022-05-29] MEDS: DOCUSATE SODIUM 100 MG CAP PO SCH ×2 (09:05→21:44)
[2022-05-29] MEDS ORDERED: IRON SUCROSE 200 MG in 0.9 % SODIUM CHLORIDE 100 ML IV ONE (12:00)
--- NOTE | 2022-05-29 12:08 | Obstetrical Progress Note ---
Date of Service May 29, 2022 Subjective Ambulation: ambulating normally Voiding: no voiding problems Passing Gas:: Yes Diet Tolerance:: regular diet Lochia:: Small Feeding Type:: breast feeding Current Pain Level(1-10): 0 doing well Physical Exam Gastrointestinal (Abdomen) fundus firm below U and non-tender Musculoskeletal Extremities: extremities normal to inspection Skin no rashes, warm and dry Neurologic patellar DTR's 2+ bilat, sensation intact Psychiatric A+Ox3, euthymic affect Results & Data ([facility]) Vital Signs (Past 12 Hours) Vital Signs Temp Pulse Pulse Resp BP Pulse Ox O2 Del Method 05/29/22 11:21 36.9 C 81 18 113/74 98 Room Air 05/29/22 07:35 36.5 C 86 18 110/75 99 Room Air 05/29/22 04:00 36.6 C 82 18 102/70 98 Room Air Laboratory Results 05/28/22 05/28/22 05/28/22 09:04 09:04 09:04 WBC 6.86 RBC 3.57 L Hgb 9.6 L Hct 29.7 L MCV 83.2 MCH 26.9 MCHC 32.3 RDW Std Deviation 44.7 RDW Coeff of Sahd 14.8 H Plt Count 168 MPV 11.1 Sodium 134 L Potassium 4.0 Chloride 104 Carbon Dioxide 21 Anion Gap 9 BUN 10 Creatinine 0.54 L Est Cr Clr Drug Dosing 176.1 Est GFR ( Amer) > 150.0 Est GFR (Non-Af Amer) 131.2 BUN/Creatinine Ratio 18.5 Glucose 71 Calcium 9.0 Total Bilirubin 0.4 AST 47 H ALT 49 Alkaline Phosphatase 196 H Total Protein 7.1 Albumin 3.5 Globulin 3.6 Albumin/Globulin Ratio 1.0 SARS-CoV-2, RNA, NAAT Blood Type A Positive Antibody Screen NEGATIVE 05/28/22 05/29/22 Unknown 06:14 WBC 8.15 RBC 2.71 L Hgb 7.3 L Hct 22.6 L MCV 83.4 MCH 26.9 MCHC 32.3 RDW Std Deviation 44.5 RDW Coeff of Shad 14.7 H Plt Count 125 L MPV 11.7 Sodium Potassium Chloride Carbon Dioxide Anion Gap BUN Creatinine Est Cr Clr Drug Dosing Est GFR ( Amer) Est GFR (Non-Af Amer) BUN/Creatinine Ratio Glucose Calcium Total Bilirubin AST ALT Alkaline Phosphatase Total Protein Albumin Globulin Albumin/Globulin Ratio SARS-CoV-2, RNA, NAAT NEGATIVE Blood Type Antibody Screen
[2022-05-29] MEDS: NICOTINE 21 MG/24 HR TDSY TD SCH (18:17)
[2022-05-29] MEDS: ACETAMINOPHEN 325 MG TAB PO PRN (19:19)
[2022-05-29] MEDS ORDERED: bisacodyL 5 MG TABEC PO SCH (20:00)
[2022-05-30] MEDS: IBUPROFEN 600 MG TAB PO PRN ×2 (06:00→13:30)
[2022-05-30] MEDS: LEVOTHYROXINE SODIUM 50 MCG TABLET PO SCH (06:00)
[2022-05-30 06:34] LABS: Hematocrit (blood only) 20.8 % (37.0-47.0); Hemoglobin 6.5 g/dl (12.0-16.0); Mean Corpuscular Hemoglobin 26.4 pg (25.0-34.0); Mean Corpuscular Hgb Conc 31.3 g/dL (32.0-36.0); Mean Corpuscular Volume 84.6 fL (80.0-100.0); Mean Platelet Volume 10.7 fL (9.4-12.4); Nucleated RBC # (auto) 0.03 K/uL (0-0.12); Nucleated RBC % (auto) 0.4 %; Platelet Count 125 K/uL (130-400); RDW Coefficient of Variation 14.9 % (11.5-14.5); RDW Standard Deviation 45.7 fL (36.4-46.3); Red Blood Count 2.46 M/uL (4.20-5.40); White Blood Count 7.22 K/ul (4.8-10.8)
[2022-05-30] MEDS ORDERED: SODIUM CHLORIDE 0.9% 250 ML IV PRN (06:52)
[2022-05-30] MEDS ORDERED: diphenhydrAMINE 50 MG/ML VIAL IV ONE (06:52)
--- NOTE | 2022-05-30 06:57 | Obstetrical Progress Note ---
Date of Service May 30, 2022 Assessment & Plan (1) Normal course: Continue routine care Anticipate discharge home tomorrow (2) Anemia: Is all received 1 dose of IV iron, hemoglobin this morning 6.5. Consent signed for blood transfusion, will transfuse 2 units this morning Repeat CBC in the morning Subjective Ambulation: ambulating normally Voiding: no voiding problems Passing Gas:: Yes Diet Tolerance:: regular diet Lochia:: Small Feeding Type:: bottle feeding Current Pain Level(1-10): 1 Patient was sleeping comfortably in bed when I arrived, had been brought to my attention that patient had a critical hemoglobin of 6.5. Discussed with patient to get blood transfusion, consents were signed in the room Patient's nurse voiced concern about mom being able to take care of baby, has not been taking care of twins, has been using social support with her aunt and nursery during the night. Does not have her car seats for the baby, and had told nursing staff overnight that they had ordered the car seats, but were not plan to arrive till Saturday. CYS has already seen the patient Physical Exam Constitutional WD/WN, vitals as above Respiratory normal respiratory effort, lungs clear to auscultation Cardiovascular RRR, no murmur, no edema Gastrointestinal (Abdomen) normal bowel sounds, soft, nontender, no hepatosplenomegaly Results & Data ([facility]) Vital Signs (Past 12 Hours) Vital Signs Temp Pulse Resp BP Pulse Ox O2 Del Method 05/30/22 00:10 36.5 C 94 H 18 110/73 99 Room Air 05/29/22 19:15 36.9 C 88 18 106/71 100 Room Air Laboratory Results Laboratory Results WBC 7.22 K/ul (4.8-10.8) 05/30/22 05:57 RBC 2.46 M/uL (4.20-5.40) L 05/30/22 05:57 Hgb 6.5 g/dl (12.0-16.0) L* 05/30/22 05:57 Hct 20.8 % (37.0-47.0) L* 05/30/22 05:57 MCV 84.6 fL (80.0-100.0) 05/30/22 05:57 MCH 26.4 pg (25.0-34.0) 05/30/22 05:57 MCHC 31.3 g/dL (32.0-36.0) L 05/30/22 05:57 RDW Std Deviation 45.7 fL (36.4-46.3) 05/30/22 05:57 RDW Coeff of Shad 14.9 % (11.5-14.5) H 05/30/22 05:57 Plt Count 125 K/uL (130-400) L 05/30/22 05:57 MPV 10.7 fL (9.4-12.4) 05/30/22 05:57 Absolute Nucleated RBC 0.03 K/uL (0-0.12) 05/30/22 05:57 Nucleated RBC % (auto) 0.4 % 05/30/22 05:57 Sodium 134 mmol/L (136-145) L 05/28/22 09:04 Potassium 4.0 mmol/L (3.5-5.1) 05/28/22 09:04 Chloride 104 mmol/L (98-107) 05/28/22 09:04 Carbon Dioxide 21 mmol/L (21-32) 05/28/22 09:04 Anion Gap 9 (3-11) 05/28/22 09:04 BUN 10 mg/dl (6-23) 05/28/22 09:04 Creatinine 0.54 mg/dl (0.6-1.2) L 05/28/22 09:04 Est Cr Clr Drug Dosing 176.1 ml/min 05/28/22 09:04 Est GFR ( Amer) > 150.0 ml/min 05/28/22 09:04 Est GFR (Non-Af Amer) 131.2 ml/min 05/28/22 09:04 BUN/Creatinine Ratio 18.5 (10-20) 05/28/22 09:04 Glucose 71 mg/dl (70-99(Fasting)) 05/28/22 09:04 Calcium 9.0 mg/dl (8.5-10.1) 05/28/22 09:04 Total Bilirubin 0.4 mg/dl (0.2-1.0) 05/28/22 09:04 AST 47 U/L (13-39) H 05/28/22 09:04 ALT 49 U/L (7-52) 05/28/22 09:04 Alkaline Phosphatase 196 U/L (34-104) H 05/28/22 09:04 Total Protein 7.1 gm/dl (6.0-8.3) 05/28/22 09:04 Albumin 3.5 gm/dl (3.4-5.0) 05/28/22 09:04 Globulin 3.6 gm/dl (2.5-4.0) 05/28/22 09:04 Albumin/Globulin Ratio 1.0 (0.9-2) 05/28/22 09:04 SARS-CoV-2, RNA, NAAT NEGATIVE (NEGATIVE) 05/28/22 Unknown Blood Type A Positive 05/28/22 09:04 Antibody Screen NEGATIVE 05/28/22 09:04
[2022-05-30] MEDS: PRENATAL VITAMIN 1 TAB PO SCH (07:46)
[2022-05-30] MEDS: SERTRALINE HCL 50 MG TABLET PO SCH (07:46)
[2022-05-30] MEDS: ACETAMINOPHEN 325 MG TAB PO PRN ×2 (07:46→16:14)
[2022-05-30] MEDS: DOCUSATE SODIUM 100 MG CAP PO SCH (07:47)
[2022-05-30] MEDS: FERROUS SULFATE 325 MG TAB PO SCH (07:47)
[2022-05-30] MEDS: NICOTINE 21 MG/24 HR TDSY TD SCH (07:57)
[2022-05-30 16:19] LABS: Hematocrit (blood only) 25.1 % (37.0-47.0); Hemoglobin 8.2 g/dl (12.0-16.0)
[2022-05-30 17:17] LABS: Hemoglobin 8.2 g/dl (12.0-16.0)
== END 2022-05-30 21:30 | disposition home or self-care (01) | DRG 807 ==
LOC: 4S1 07:44 → 4E2 20:52